=== PATIENT | female | born 1940 | race Caucasian/White ===

== ENCOUNTER → 2020-02-01 08:33 | Outpatient (BNVA) | payer MEDICARE, SELFPAY | PROVIDERS: PCP Family Medicine; Referring Provider Family Medicine; Visit Provider Student in an Organized Health Care Education/Training Program | DX: M16.11 Unilateral primary osteoarthritis, right hip (principal); M16.12 Unilateral primary osteoarthritis, left hip; M70.61 Trochanteric bursitis, right hip | CPT/HCPCS: 99203 ==

== ENCOUNTER 2020-03-26 14:51 | Outpatient (CLI) | payer MEDICARE, SELFPAY ==
--- NOTE | 2020-03-26 13:00 | DI.RAD_ITS ---
EXAM: XR PELVIS AP CLINICAL HISTORY: pre op. TECHNIQUE: 2D digital imaging was performed. COMPARISON: No exams were available for comparison FINDINGS: There are marked degenerative changes of the right hip with joint space narrowing, subchondral sclero sis and periarticular spurring. Moderate degenerative changes are seen in the left hip. The bones a re normally mineralized and intact. The soft tissues are unremarkable. IMPRESSION: Osteoarthritis of the hips bilaterally. DATA REPOSITORY: RADIATION DOSE DELIVERED:
== END 2020-03-26 15:11 ==
PROVIDERS: PCP Family Medicine; Visit Provider Physician Assistant
DX: M16.0 Bilateral primary osteoarthritis of hip (principal)
CPT/HCPCS: 72170

== ENCOUNTER 2020-03-28 01:54 | Outpatient (CLI) | payer MEDICARE, SELFPAY ==
[2020-03-30 11:26] LABS: SARS-CoV-2 RNA Not Detected (NotDetected); SARS-CoV-2 RNA Source Nasal/Nares
== END 2020-03-28 02:14 ==
PROVIDERS: PCP Family Medicine; Visit Provider Student in an Organized Health Care Education/Training Program
DX: Z11.59 Encounter for screening for other viral diseases (principal); Z01.818 Encounter for other preprocedural examination
CPT/HCPCS: U0003

== ENCOUNTER 2020-03-28 02:10 | Outpatient (CLI) | payer MEDICARE, SELFPAY ==
[2020-03-28 10:36] LABS: HCT 41.8 % (36.0-46.0); HGB 13.6 g/dL (11.2-15.7); MCH 28.8 pg (27.0-33.0); MCHC 32.5 % (32.0-36.0); MCV 88.6 fL (80-95); MPV 9.6 fL (8.0-11.0); Platelet Count 265 10^3/uL (130-400); RBC 4.72 10^6/uL (3.93-5.22); RDW 13.2 % (11.7-14.6); RDW-SD 43.4 fL; WBC 8.03 10^3/uL (4.4-10.8)
[2020-03-28 12:09] LABS: Anion Gap 7.1 mmol/L (3-11); BUN 15 mg/dL (7-18); CO2 26.9 mmol/L (21.0-32.0); CREATININE 0.84 mg/dL (0.55-1.02); Calcium 9.2 mg/dL (8.5-10.1); Chloride 103 mmol/L (98-107); Glucose 94 mg/dL (74-106); Potassium 4.5 mmol/L (3.5-5.1); Sodium 137 mmol/L (136-145)
== END 2020-03-28 02:30 ==
PROVIDERS: PCP Family Medicine; Visit Provider Student in an Organized Health Care Education/Training Program
DX: Z01.818 Encounter for other preprocedural examination (principal); M16.11 Unilateral primary osteoarthritis, right hip
CPT/HCPCS: 36415; 80048; 85027; 86850; 86900; 86901; U0003

== ENCOUNTER → 2020-04-01 08:21 | Outpatient (BNVA) | payer MEDICARE, SELFPAY | PROVIDERS: PCP Family Medicine; Referring Provider Family Medicine; Visit Provider Student in an Organized Health Care Education/Training Program | DX: R69 Illness, unspecified (principal) ==

== ENCOUNTER 2020-04-01 09:21 | Observation (INO) | payer MEDICARE, SELFPAY ==
[2020-04-01] VITALS (12 sets, daily range): BP systolic 131–176; BP diastolic 63–91; PULSE 57–69; RESP 12–20; TEMP 35.7–37.7; O2SAT 94–99
[2020-04-01] MEDS: Lactated Ringers 1,000 ML 80 ML IV (10:31)
[2020-04-01] MEDS: Ondansetron 4 MG/2 ML VIAL IVP (10:36)
[2020-04-01] MEDS: Droperidol 5 MG/2 ML VIAL 0.625 MG IVP (10:43)
[2020-04-01] MEDS: Celecoxib 200 MG CAP 400 MG PO (10:52)
[2020-04-01] MEDS: Acetaminophen 500 MG TAB 1000 MG PO ×3 (10:52→20:05)
[2020-04-01] MEDS: ceFAZolin 2 GM/50 ML BAG IVPB (15:16)
[2020-04-01] MEDS: Bupivacaine 0.25% Pres-Free 30 ML VIAL ×2 (16:02→16:04)
[2020-04-01] MEDS: Ketorolac 30 MG/ML VIAL (16:03)
--- NOTE | 2020-04-01 16:51 | DI.RAD_ITS ---
EXAM: XR HIP RT IN OR CLINICAL HISTORY: Degenerative joint disease of right hip TECHNIQUE: 2D and realtime digital imaging was performed. CONTRAST MATERIAL: Refer to procedure report. COMPARISON: No exams were available for comparison FINDINGS: Fluoroscopy was provided for Dr. Moore during the performance of a right total hip replacement. Please refer to the procedure report for complete details. Fluoro time: 34.3 seconds IMPRESSION: RADIATION DOSE DELIVERED:
--- NOTE | 2020-04-01 16:55 | W.PM.OP ---
Date of service: 04/01/20 Time of Service: 16:56 Operative Note Operative Note DATE OF PROCEDURE: 04/01/20 PRE-OP DIAGNOSIS: Right Hip Osteoarthritis POST-OP DIAGNOSIS: same PROCEDURE: Right Anterior Total Hip Arthroplasty SURGEON: Petros Moore INTELLIGENCE OFFICER BASIC: Bravo Edward ANESTHESIA: spinal ESTIMATED BLOOD LOSS: 300 PATHOLOGY: none sent TOURNIQUET TIME: 0 COMPLICATIONS: None Patient was transported to: PACU Patient's condition: stable Implants: 1. Depuy [place] Acetabular Component, 48mm 2. Depuy Acetabular Liner, [id number] 3. Depuy Corail Coxa Vara Femoral Stem, Size 11 4. Depuy Altrx Ceramic Femoral Head, Size 32+5mm Indications: I have seen Brynn in clinic for symptoms of hip arthritis, confirmed with radiographic findings. Brynn has exhausted nonoperative methods and was having significant limitations in daily function and desired better function and less pain. I discussed the technical details of a hip replacement. I explained the risks of the procedure to include, but not limited to, bleeding, infection, pain, stiffness, fracture, damage to nerves and vessels, damage to muscles and tendons, loosening, instability, leg length inequality, need for repeat procedure, blood clot and cardiopulmonary demise. Despite these risks, Brynn elected to proceed. Findings: There was significant signs of arthritis throughout the hip. Multiple lateral neck osteophytes were present. Procedure Description: Brynn was greeted in the preoperative holding area where the correct side was identified and marked. The consent was reviewed with the patient and signed. The history and physical was updated. All questions were answered. Brynn was taken back to the operating room. A spinal anesthestic was then administered. The feet were wrapped with cast padding and Coban and then placed into the boot liners and then into the boots. Care was taken to protect the skin and make sure the heels were fully down and the boots were stable. The patient was then positioned onto the HANA table. Both legs were held in a neutral position. SCDs were applied. The patient was then slid down onto a peroneal post. A preoperative AP pelvis was obtained to serve as a reference for determining leg lengths. Prophylactic antibiotics in the form of Cefazolin were administered. 1g of Tranxemic Acid was given intravenously within 30 minutes of incision. The right leg was then prepped with Chloraprep and draped in a standard fashion. A second prep with Chloraprep was performed prior to placement of a shower-curtain type drape with Iodine impregnated skin protection. A timeout to confirm correct identity, side and site, procedure, allergies, anesthesia, and medical concerns was performed. An obliquely oriented incision was made starting lateral to the ASIS and running distal over the Tensor Fascia Anayeli (TFL) muscle belly toward the fibular head, approximately 10cm. The skin and soft tissue was dissected sharply, through Tevin?s fascia, and to the fascia of the TFL. With the fascia and superior border of the IT band identified, the fascia was incised with a new knife just above any perforators from the IT band. The TFL muscle belly was bluntly dissected away from the fascia and moved laterally. The fat between TFL and rectus was identified to ensure the dissection was not within the TFL. Blunt dissection created space between abductors and the capsule and retractor was placed over the lateral femoral neck. The fibers of the rectus femoris tendon were identified and these were freed from the anterior capsule. A second cobra retractor was placed around the medial femoral neck. The TFL was further retracted laterally to show the deep fascia. Careful dissection through this layer identified three main crossing vessels of the lateral femoral circumflex. These were cauterized in multiple locations and then cut without any noticeable bleeding. The TFL was further released bluntly from the deep fascia to expose anterior hip capsule and fat The Keith orthopaedic retractor was then placed beneath the TFL and against sartorius and medial soft tissues to protect and retract the soft tissues. A T-capsulotomy was then performed starting at the superior lateral acetabulum and moving distally to the intertrochanteric ridge. These capsular flaps were tagged with a No. 1 Ethibond and elevated from within. The capsular flaps were released to the shoulder of the lateral neck and to the lesser trochanter to give excellent visualization of the proximal femur. A neck osteotomy was performed using an oscillating saw based on preoperative templates. This cut started in the shoulder and of the lateral neck and exited medially. The saw was at all times directed medially to avoid injury to the greater trochanter. 6cm of traction was applied to the leg and the osteotomy opened. The femoral head was removed with a corkscrew, making sure to protect the TFL on its exit. Traction was released after head removal. This was measured on the back table to determing the starting reamer size. Portions of the rectus obscuring visualization were minimally elevated off the superior acetabulum. An anterior retractor was placed over the anterior wall between capsule and labrum and attached to the Gripper retraction system. A posterior retractor was placed similarly. This provided excellent visualization. The contents of the cotyloid fossa were removed with electrocautery and the labrum was removed with a knife. There was a notable floor osteophyte. There was significant chondromalacia of the superior acetabulum. Acetabular reaming began with a 44mm reamer. This first reaming was directed anterior to posterior and medial to get down to the true floor. This was inspected and reamed until the true floor was reached. The anterior retractor was then released and entry and exit was provided by traction on the capsular flaps. I then reamed sequentially up to a 47mm reamer where good fit was obtained. The larger reamers were oriented based on anatomical reference of the anterior and lateral barrientos to ensure proper abduction and anteversion. Positioning and size was confirmed with the fluoroscopy. A 48mm Depuy [place] acetabular component was selected. The acetabulum was reamed around the periphery with the selected acetabular size to prevent a rim fit. The deep tissues were irrigated. The acetabular component was then impacted in a position of about 40-45 degrees of abduction and 15-20 degrees of anteversion, using the patient?s anatomy as the ultimate landmark. Fluoroscopy was used to confirm this. There was excellent health insurance assessor of the acetabular component and the inserting handle was removed. The acetabular liner, Depuy [id number] polyethylene liner, was inserted and lined up with the tines of the acetabular component. There was no soft tissue interposition. The liner was then impacted into position and confirmed to be well-seated. A portion of the sandhya-articular cocktail was then injected around the acetabulum into the capsule and periosteum. This cocktail consisted of 50cc of 0.25% Bupivicaine and 20cc of Exparel, expanded to a total of 120cc. Traction was released from the femur. The leg was rotated to 120 degrees. Any remaining medial capsule was released until the lesser trochanter was easily palpable. A Ellis retractor was placed medially. The lateral capsule was further released into the shoulder to allow access to the greater trochanter. A Ellis retractor was placed over the greater trochanter which allowed the trochanter to flip in front of the capsule for excellent exposure. The leg was brought down into maximal extension and 20 degrees of adduction while ensuring there was no impingement on the acetabulum. Any remnant capsule within the trochanter was released. Piriformis and obturator externis were identified and protected. There was excellent access to the proximal femur. The lateral neck remnant was removed with a rongeur. A blunt canal probe was used to identify the canal and trajectory for later broaching. A box osteotome initiated the broach course. A small curved rasp and a curved curette were used to work laterally. Broaching then began with a size 8 Corail broach. This was inserted manually around the trochanter and into the canal before mallet blows. The broach was seated to a few millimeters below the cut level based on the neck cut and the preoperative template. Sequential broaching was continued with the Zume Lifese pneumatic broaching device until a tight fit was obtained with good rotational control of the femur. A trial coxa vara neck was inserted along with a +1 trial head. The leg was brought out of extension and adduction and then reduced with traction and internal rotation. The leg was stable anteriorly in a position of 30 degrees of extension and 90 degrees of external rotation. Fluoroscopy was used to ensure there was no fracture and the stem was seated well. Leg lengths were checked with an AP pelvis and pelvic reference points. [employer] navigation system was used to confirm appropriate positioning and leg length and offset. There was still some under offset, so I went up to the +5 head. Once content with the desired offset and leg lengths, the leg was brought back into extension, external rotation and adduction. The periosteum and surrounding tissue was injected with remaining portion of the sandhya-articular cocktail. The proximal femur was irrigated as well as the deep tissues. The Depuy Corail Coxa Vara stem, size 11, was then manually inserted into the proximal femur making sure to control rotation. It was then malleted into position with light blows, giving breaks to allow bone expansion and decrease risk of fracture. The selected Depuy Altrx Ceramic Head, size 32+5mm, was then placed onto the clean and dry trunnion and secured with impaction onto the tapered fit. The leg was brought back out of extension and adduction and reduced with traction and internal rotation. Stability was confirmed with no shuck at 90 degrees of external rotation and 30 degrees of extension. No impingement through range of motion arc. Final x-ray images were obtained with fluoroscopy to confirm adequate positioning and no intraoperative fracture. The deep tissues were thoroughly irrigated with Irrisept chlorhexadine solution. The second dose of TXA 1g was administered intravenously.The capsule was then reapproximated with the previously placed Ethibond sutures. The TFL fascia was finally closed with a No. 2 Stratafix, barbed suture. Deep tissues were then reapproximated with 0 Vicryl and a running 2-0 Vicryl. The skin was closed with a running 4-0 Monocryl in a subcuticular fashion. This was reinforced with skin glue. A Mepilex silver dressing was applied. At the end of the case, all counts were correct. Brynn was transferred to the hospital bed without difficulty and suffering no apparent complication. Brynn has a good prognosis. Physical therapy will start today and without restrictions, weight-bearing as tolerated. Aspirin 81mg BID will be used for DVT prophylaxis.
[2020-04-01] MEDS: Celecoxib 200 MG CAP PO (19:53)
[2020-04-01] MEDS: Aspirin E.C. 81 MG TABEC PO (19:53)
[2020-04-01] MEDS: ceFAZolin 1 GM/50 ML BAG IVPB (19:53)
[2020-04-02] MEDS: ceFAZolin 1 GM/50 ML BAG IVPB (03:53)
[2020-04-02 04:05] VITALS: BP 145/76; PULSE 75; RESP 17; TEMP 37.1; O2SAT 95
[2020-04-02 07:22] VITALS: BP 163/78; PULSE 78; RESP 17; TEMP 36.7; O2SAT 93
[2020-04-02] MEDS: Celecoxib 200 MG CAP PO (07:30)
[2020-04-02] MEDS: Acetaminophen 500 MG TAB 1000 MG PO (07:30)
[2020-04-02] MEDS: Aspirin E.C. 81 MG TABEC PO (07:30)
[2020-04-02] MEDS: Docusate Sodium 100 MG CAP PO (07:30)
[2020-04-02] MEDS: Pantoprazole 40 MG TABCR PO (07:31)
[2020-04-02] MEDS: Folic Acid 1 MG TAB PO (07:35)
--- NOTE | 2020-04-02 07:41 | W.PM.DS.N ---
Documented by User: Francie Arreola 04/01/20 10:11 DS: Diagnosis Discharge Diagnosis (1) Degenerative joint disease of right hip: Status: Chronic Discharge Plan Disposition Patient Disposition: HOME Condition: Good Discharge Details Reason For Visit: R HIP DJD Admit Date/Time: 04/01/20 09:21 Admit Provider: Petros Moore Attending Provider: Petros Moore Primary Care Provider: Rad Kwok Hospital Course Hospital Course: Patient was admitted to the medical/surgical floor following the procedure. The surgery was tolerated well without any notable medical, surgical, or anesthetic complications. Mobilization began post-operatively. They were voiding spontaneously. Vitals were stable. Physical therapy worked with the patient and was cleared for discharge home. No acute medical issues but she did have intermittent nauea and visual changes which she has been having for weeks prior. These all resolved on their own. Pain was controlled on oral regimen. Home Meds and New Rx's Prescriptions: New celecoxib [Celebrex] 200 mg capsule 200 mg PO BID Qty: 60 RF: 0 aspirin 81 mg tablet,delayed release (DR/EC) 81 mg PO BID 30 Days Qty: 60 RF: 0 acetaminophen 500 mg tablet 500 mg PO Q6H PRN (Reason: pain) Qty: 60 RF: 2 docusate sodium [Colace] 100 mg capsule 100 mg PO BID Qty: 30 RF: 0 oxycodone 5 mg tablet 2.5 - 5 mg PO Q6H PRN (Reason: severe post-operative pain) Qty: 12 RF: 0 pantoprazole 40 mg tablet,delayed release (DR/EC) 40 mg PO DAILY Qty: 30 RF: 0 Continued garlic 1,000 mg capsule 1,000 mg PO DAILY RF: 0 verapamil 180 mg capsule,ext rel. pellets 24 hr 180 mg PO HS RF: 0 cholecalciferol (vitamin D3) 25 mcg (1,000 unit) capsule 25 mcg PO DAILY RF: 0 folic acid 1 mg Tablet 1 mg PO DAILY RF: 0 Discontinued aspirin [Adult Aspirin Regimen] 81 mg tablet,delayed release (DR/EC) 81 mg PO DAILY RF: 0 Discharge Instructions Additional Instructions: Total Hip Discharge Instructions Activity: The most important activity is to walk. You should try to take short walks a few times a day. You have no restrictions on movement or positioning, but do not try to force what you do. You will find some stiffness and weakness with hip flexion (lifting your knee). Do not try to strengthen this too early, continue to practice walking and stairs and this will come. - Outpatient physical therapy can be helpful to help return you to a normal gait and improve your flexibility and strength. This can start around 2 weeks. For some patients, it?s not necessary. Usually this is determined at the time of discharge or at the first post-operative visit. - You should wear the JOSEPH hose on both legs for 2 weeks. Dressing: Keep the surgical dressing in place for at least one week. After the first week it may be removed and replace with light gauze and tape or nothing. It may get wet after 3 days but avoid soaking the dressing. If it gets wet, just lightly pat dry. It is important to always keep some gauze between skin folds, especially when you are sitting. Spend some time with the wound exposed when you are lying flat as the incision does wrinkle onto itself. Medications: - You should take Tylenol and an anti-inflammatory Celebrex as your primary pain control medications. If Celebrex is too expensive or not covered, you may take Aleve 1-2 pills twice a day. - You have been prescribed a stronger pain medication Oxycodone for breakthrough pain, take as needed as prescribed. - You have also been prescribed a stomach acid reduction agent Pantoprozole to help reduce stomach acid and reflux. - You will be taking Aspirin 81mg twice a day for DVT prevention unless instructed otherwise. - If you have constipation you should take Colace (which has been prescribed) or Miralax (which you may purchase [id number]). It takes most people 3-4 days to have a bowel movement. Follow-up: 2 weeks If you have any acute concerns or questions, please do not hesitate to contact the office at [phone]. You may contact Dr. Moore with any questions after hours through the hospital at [phone] or on his cell phone at [phone]. Referrals: Petros Moore MD [ [facility] STAFF PHYSICIAN] - Activity:: Activity as Tolerated Equipment/Supplies:: Walker Diet:: As Tolerated Discharge Orders Discharge Orders: Discharge Order (Routine); Ordered 04/02/20 Ordered By: Petros Moore DS: Data Vitals/I&O Vitals and I&O: Vital Signs Temperature 36.5 C 04/01/20 09:56 Pulse 69 04/01/20 09:56 Pulse Rhythm Regular 04/01/20 09:30 Respiratory Rate 18 04/01/20 09:56 Respiratory Effort 04/01/20 09:30 Blood Pressure 163/80 H 04/01/20 09:56 Pulse Oximetry 97 04/01/20 09:56 Oxygen Delivery Method Room Air 04/01/20 09:56 Oxygen Flow Rate 0 04/01/20 09:56 Intake & Output 03/31/20 03/31/20 04/01/20 11:59 23:59 11:59 Weight 84.822 kg 83.9 kg [facility] Medical History Abnormal auditory perception (12/08/15) 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 denies this dx Trochanteric bursitis, right hip Surgical History History of cardiac catheterization (~05/1998) Lesion of lip lower lip precancerous lesion removal Status post carpal tunnel release Right Social History Smoking/Tobacco Use Status: Former Tobacco Use Smoking risk assessment performed?: Yes Drug use: Never Documented by User: Petros Moore MD 04/02/20 07:41 Date of service: 04/02/20 Time of Service: 07:39 Discharge Plan Disposition Patient Disposition: HOME Condition: Good Discharge Details Reason For Visit: R HIP DJD Admit Date/Time: 04/01/20 09:21 Admit Provider: Petros Moore Attending Provider: Petros Moore Primary Care Provider: Rad Kwok Hospital Course Hospital Course: Patient was admitted to the medical/surgical floor following the procedure. The surgery was tolerated well without any notable medical, surgical, or anesthetic complications. Mobilization began post-operatively. They were voiding spontaneously. Vitals were stable. Physical therapy worked with the patient and was cleared for discharge home. No acute medical issues but she did have intermittent nauea and visual changes which she has been having for weeks prior. These all resolved on their own. Pain was controlled on oral regimen. Home Meds and New Rx's Prescriptions: New celecoxib [Celebrex] 200 mg capsule 200 mg PO BID Qty: 60 RF: 0 aspirin 81 mg tablet,delayed release (DR/EC) 81 mg PO BID 30 Days Qty: 60 RF: 0 acetaminophen 500 mg tablet 500 mg PO Q6H PRN (Reason: pain) Qty: 60 RF: 2 docusate sodium [Colace] 100 mg capsule 100 mg PO BID Qty: 30 RF: 0 oxycodone 5 mg tablet 2.5 - 5 mg PO Q6H PRN (Reason: severe post-operative pain) Qty: 12 RF: 0 pantoprazole 40 mg tablet,delayed release (DR/EC) 40 mg PO DAILY Qty: 30 RF: 0 Continued garlic 1,000 mg capsule 1,000 mg PO DAILY RF: 0 verapamil 180 mg capsule,ext rel. pellets 24 hr 180 mg PO HS RF: 0 cholecalciferol (vitamin D3) 25 mcg (1,000 unit) capsule 25 mcg PO DAILY RF: 0 folic acid 1 mg Tablet 1 mg PO DAILY RF: 0 Discontinued aspirin [Adult Aspirin Regimen] 81 mg tablet,delayed release (DR/EC) 81 mg PO DAILY RF: 0 Discharge Instructions Additional Instructions: Total Hip Discharge Instructions Activity: The most important activity is to walk. You should try to take short walks a few times a day. You have no restrictions on movement or positioning, but do not try to force what you do. You will find some stiffness and weakness with hip flexion (lifting your knee). Do not try to strengthen this too early, continue to practice walking and stairs and this will come. - Outpatient physical therapy can be helpful to help return you to a normal gait and improve your flexibility and strength. This can start around 2 weeks. For some patients, it?s not necessary. Usually this is determined at the time of discharge or at the first post-operative visit. - You should wear the JOSEPH hose on both legs for 2 weeks. Dressing: Keep the surgical dressing in place for at least one week. After the first week it may be removed and replace with light gauze and tape or nothing. It may get wet after 3 days but avoid soaking the dressing. If it gets wet, just lightly pat dry. It is important to always keep some gauze between skin folds, especially when you are sitting. Spend some time with the wound exposed when you are lying flat as the incision does wrinkle onto itself. Medications: - You should take Tylenol and an anti-inflammatory Celebrex as your primary pain control medications. If Celebrex is too expensive or not covered, you may take Aleve 1-2 pills twice a day. - You have been prescribed a stronger pain medication Oxycodone for breakthrough pain, take as needed as prescribed. - You have also been prescribed a stomach acid reduction agent Pantoprozole to help reduce stomach acid and reflux. - You will be taking Aspirin 81mg twice a day for DVT prevention unless instructed otherwise. - If you have constipation you should take Colace (which has been prescribed) or Miralax (which you may purchase [id number]). It takes most people 3-4 days to have a bowel movement. Follow-up: 2 weeks If you have any acute concerns or questions, please do not hesitate to contact the office at [phone]. You may contact Dr. Moore with any questions after hours through the hospital at [phone] or on his cell phone at [phone]. Referrals: Petros Moore MD [ [facility] STAFF PHYSICIAN] - Activity:: Activity as Tolerated Equipment/Supplies:: Walker Diet:: As Tolerated Discharge Orders Discharge Orders: Discharge Order (Routine); Ordered 04/02/20 Ordered By: Petros Moore DS: Summary Status at Discharge Functional status at discharge: uses cane/walker Overall status at discharge: patient is progressing back to baseline Mental Status: mental status grossly normal Speech and Movement: speech and movement normal Mood: congruent mood Affect: normal affect Exam Psych Mental Status: mental status grossly normal Speech and Movement: speech and movement normal Mood: congruent mood Affect: normal affect [facility] Medical History Abnormal auditory perception (12/08/15) 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 denies this dx Trochanteric bursitis, right hip Surgical History History of cardiac catheterization (~05/1998) Lesion of lip lower lip precancerous lesion removal Status post carpal tunnel release Right Social History Smoking/Tobacco Use Status: Former Tobacco Use Smoking risk assessment performed?: Yes Drug use: Never
--- NOTE | 2020-04-02 08:32 | IN_ITS ---
Date of service: 04/02/20 Time of Service: 08:32 PT Notes Visit Reasons: R HIP DJD Physical Therapy Inpatient Initial Evaluation Date: 04/02/2020 Referring Doctor: Francie Arreola NP PT Orders: PT CONSULT: Status post ortho surgery Precautions: Fall. Standard. WBAT on the right LE. Patient Profile/Admitting Diagnosis: Brynn is an 80-year-old female with primary unilateral osteoarthritis of the right hip and is status post right total hip arthroplasty on postoperative day 1. 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 COPD (chronic obstructive pulmonary disease) Coronary artery disease Degenerative joint disease of left hip Degenerative joint disease of right hip Depression GERD (gastroesophageal reflux disease) History of cardiac conduction disorder History of cerebrovascular disease Hyperlipidemia Hypertension Left bundle branch block Nicotine dependence Referred otalgia of both ears (12/08/15) Sensorineural hearing loss, bilateral (03/28/17) Sensory hearing loss, bilateral (12/08/15) Shadow of lung pulmonary nodules Spinal stenosis TMJ (temporomandibular joint disorder) (12/08/15) Trochanteric bursitis, right hip Surgical History (Updated 03/25/20 @ 16:27 by Francie Arreola) History of cardiac catheterization (~05/1998) Lesion of lip lower lip precancerous lesion removal Status post carpal tunnel release Right Social History/Home Situation: Lives alone in a private home with a ramp to enter, no stairs inside the house. Independent with all aspects of ADLs prior to surgery. Has good family support. Equipment Owned/DME: Front wheeled walker, single-point cane, raised toilet seat, ramp Subjective: Complained about being mildly lightheaded upon standing, subsided after ambulation activity. Objective: General Observation: IV access in right UE. Mepilex Ag over surgical incision. Mental Status: Alert and oriented x4 Pain: 1?2/10 in right hip with weightbearing ROM: Right Upper Extremity: Shoulder Flexion WFL. Shoulder abduction WFL. Elbow flexion WFL. Wrist flexion WFL. Opening and closing of hand WFL. Left Upper Extremity: Shoulder Flexion WFL. Shoulder abduction WFL. Elbow flexion WFL. Wrist flexion WFL. Opening and closing of hand WFL. Right Lower Extremity: Hip flexion WFL. Hip abduction WFL. Knee flexion WFL. Ankle dorsiflexion WFL. Ankle plantarflexion WFL. Left Lower Extremity: Hip flexion WFL. Hip abduction WFL. Knee flexion WFL. Ankle dorsiflexion WFL. Ankle plantarflexion WFL. Strength: Right Upper Extremity: Shoulder flexors 5/5. Shoulder abductors 5/5. Elbow flexors 5/5. Elbow extensors 5/5. Car Mechanic Helper strong. Left Upper Extremity: Shoulder flexors 5/5. Shoulder abductors 5/5. Elbow flexors 5/5. Elbow extensors 5/5. Car Mechanic Helper strong. Right Lower Extremity: Hip flexors 4/5. Hip abductors 4/5. Knee flexors 5/5. Knee extensors 4/5. Ankle dorsiflexors 5/5. Ankle plantarflexors 5/5. Left Lower Extremity:Hip flexors 5/5. Hip abductors 5/5. Knee flexors 5/5. Knee extensors 5/5. Ankle dorsiflexors 5/5. Ankle plantarflexors 5/5. Sensation: Intact as to pain and pressure on bilateral lower extremities. Bed Mobility/Transfers: Rolling independent Supine to sit independent Sit to supine independent Sit to stand supervision Stand to sit supervision Bed to chair supervision Chair to bed supervision Gait: 250 feet using front wheeled walker with standby assist. Step through gait pattern. Report of mild dizziness subsided after ambulation activity. Balance: Static Sitting: Normal Dynamic Sitting: Normal Static Standing: Fair Dynamic Standing: Fair Special Tests: Mobility Limitations Standardized Measure [facility] 6 clicks Basic Mobility Inpatient Short Form: Raw Score: 23 CMS Score: 11% deficit Informed Consent/Education: Patient instructed in purpose of PT consult. Assessment: Brynn demonstrates functional mobility decline requiring the use of front wheeled walker for all mobility ADL performance to maximize safety and reduce fall risk. Patient presents with clinical signs and symptoms consistent with current/admitting diagnoses that have resulted to mobility limitations, gait instability, generalized weakness, and impairment of motor control as demonstrated by the following impairment level findings: 1. Impaired sitting/standing balance 2. Impaired activity tolerance Impairments are contributing to the following functional limitations: 1. Inability to safely ambulate without assistive device 2. Increase completion time for mobility ADL performance 3. Increased fall risk Patient is assessed as a 19759 moderate complexity based on the following: History: 80-year-old female height with impairment level findings, functional limitations, and past medical history as indicated above Examination: Demonstrable impairment in strength, balance, and mobility level with underlying impairments and functional limitations as documented above Presentation:Evolving Decision Makin moderate complexity Goals: N/A. PT consult and 1 treatment session only for functional mobility education and training with use of front wheeled walker. Plan of Care/Treatment Plan: N/A. PT consult and 1 treatment session only for functional mobility education and training with use of front wheeled walker. DISCHARGE RECOMMENDATIONS: Home when medically cleared by orthopedic surgeon. Outpatient physical therapy services as deemed necessary by orthopedic surgeon during 2-week orthopedic follow-up. TREATMENT CODE/TIME: 60632 x 23 minutes beginning at 8:32 AM. Thank you for the opportunity to participate in the care of this patient. Libertad De Jesus PT, DPT, CLT [facility] [place], [place]
--- NOTE | 2020-04-02 08:35 | INITIAL_ITS ---
- If Service Date Differs Date of service: 04/02/20 Time of Service: 08:36 Care Management Initial Assess REASON FOR HOSPITALIZATION:: DJD right hip PAST MEDICAL HISTORY/PAST SURGICAL HISTORY:: Medical History (Updated 03/26/20 @ 13:52 by Julieth Bhardwaj RN). Abnormal auditory perception (12/08/15). Adrenal gland disorder. Chronic ischemic heart disease. COPD (chronic obstructive pulmonary disease). Coronary artery disease. Degenerative joint disease of left hip. Degenerative joint disease of right hip. Depression. GERD (gastroesophageal reflux disease). History of cardiac conduction disorder. History of cerebrovascular disease. Hyperlipidemia. Hypertension. Left bundle branch block. Nicotine dependence. Referred otalgia of both ears (12/08/15). Sensorineural hearing loss, bilateral (03/28/17). Sensory hearing loss, bilateral (12/08/15). Shadow of lung. pulmonary nodules. Spinal stenosis. TMJ (temporomandibular joint disorder) (12/08/15). Trochanteric bursitis, right hip. Surgical History (Updated 03/25/20 @ 16:27 by Francie Arreola). History of cardiac catheterization (~05/1998). Lesion of lip. lower lip precancerous lesion removal. Status post carpal tunnel release. Right PREVIOUS FUNCTIONAL STATUS/SOCIAL/FAMILY SUPPORTS:: Brynn lives alone in a mobile home in [place], [place]. She has 5 living children and 14 grandchildren, all of whom are supportive. Gracia's oldest son of small cell cancer as did her . 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 She describes herself as very independent. CURRENT FUNCTIONAL STATUS:: Brynn was sitting up in a chair when CM met with her. She was pleasant and engaged readily with CM. She informed CM that she has been discharged and that her daughter in law will pick her up mid-afternoon. She has a walker and raised toilet seat and does not feel she will need any additional resources. ADVANCE DIRECTIVES:: none on file Has patient been provided with info about the portal/API?: No Did the patient sign up for the portal?: No CODE STATUS:: Full Code INSURANCE COVERAGE / FINANCIAL ISSUES:: Medicare. Financial Assist 100 CURRENT HOME/COMMUNITY SERVICES/EQUIPMENT:: none PRIMARY CARE PHYSICIAN:: Rad Kwok POTENTIAL DISCHARGE NEEDS:: Follow up with PCP and discharge plan of care PATIENT/FAMILY EDUCATION NEEDS:: Discharge plan, limitations, follow up plan and Ask Me Three TRANSPORTATION:: via private vehicle PLAN:: Brynn will be discharged home with no new services. She will follow up with her surgeon and discharge plan of care and transport with family.
== END 2020-04-02 09:37 | disposition home or self-care (01) | DRG 470 ==
LOC: PDS 10:02 → MS 18:20 → PDS 04-29 15:03 → MS 04-29 15:03
PROVIDERS: Admitting Provider Student in an Organized Health Care Education/Training Program; PCP Family Medicine; Visit Provider Student in an Organized Health Care Education/Training Program
PROC: 0SR904A Replacement of Right Hip Joint with Ceramic on Polyethylene Synthetic Substitute, Uncemented, Open Approach (ICD-10-PCS; CPT 27130; principal; 2020-04-01 15:30)
DX: M16.11 Unilateral primary osteoarthritis, right hip (principal); M25.551 Pain in right hip; Z96.641 Presence of right artificial hip joint; R10.31 Right lower quadrant pain; J44.9 Chronic obstructive pulmonary disease, unspecified; I25.10 Atherosclerotic heart disease of native coronary artery without angina pectoris; K21.9 Gastro-esophageal reflux disease without esophagitis; I10 Essential (primary) hypertension; E78.5 Hyperlipidemia, unspecified; F17.210 Nicotine dependence, cigarettes, uncomplicated
CPT/HCPCS: 20985; 27130; C1776; 97162; NC; 73501; J0690; J1790; J1885; J2405; J2704

== ENCOUNTER 2020-04-14 16:07 | Outpatient (CLI) | payer MEDICARE, SELFPAY ==
--- NOTE | 2020-04-14 15:00 | DI.RAD_ITS ---
EXAM: XR HIP RT COMPLETE AP PELVIS INDICATION: 1st post op R LISHA. COMPARISON: CR XR HIP RT MIN 2V AND PELVIS from 07/12/2019 XR HIP RT IN OR from 04/01/2020 TECHNIQUE: 2D digital imaging was performed. FINDINGS: There has been no change in alignment of the right hip prosthesis. No abnormal bony lucencies are s een. Soft tissues are unremarkable. Moderate to severe degenerative changes are seen in the left hi p. DATA REPOSITORY: RADIATION DOSE DELIVERED:
== END 2020-04-14 16:27 ==
PROVIDERS: PCP Family Medicine; Referring Provider Family Medicine; Visit Provider Student in an Organized Health Care Education/Training Program
DX: Z96.641 Presence of right artificial hip joint (principal); M16.12 Unilateral primary osteoarthritis, left hip; Z47.1 Aftercare following joint replacement surgery; J44.9 Chronic obstructive pulmonary disease, unspecified
CPT/HCPCS: 73502

== ENCOUNTER → 2020-04-28 14:33 | Outpatient (BNVA) | payer MEDICARE, SELFPAY | PROVIDERS: PCP Family Medicine; Referring Provider Family Medicine; Visit Provider Student in an Organized Health Care Education/Training Program | DX: Z96.641 Presence of right artificial hip joint (principal); Z47.1 Aftercare following joint replacement surgery ==

== ENCOUNTER → 2020-05-26 13:51 | Outpatient (BNVA) | payer MEDICARE, SELFPAY | PROVIDERS: PCP Family Medicine; Referring Provider Family Medicine; Visit Provider Student in an Organized Health Care Education/Training Program | DX: Z47.1 Aftercare following joint replacement surgery (principal); Z96.641 Presence of right artificial hip joint ==

== ENCOUNTER 2020-07-07 15:53 | Outpatient (CLI) | payer MEDICARE, SELFPAY | END 2020-07-07 15:54 | disposition home or self-care (01) | LOC: DIORS 15:54 | PROVIDERS: PCP Family Medicine; Referring Provider Family Medicine; Visit Provider Student in an Organized Health Care Education/Training Program | DX: Z47.1 Aftercare following joint replacement surgery (principal); Z96.641 Presence of right artificial hip joint; M70.61 Trochanteric bursitis, right hip | CPT/HCPCS: 99212; 99213 ==

== ENCOUNTER → 2020-08-04 14:29 | Outpatient (BNVA) | payer MEDICARE, SELFPAY | PROVIDERS: PCP Family Medicine; Visit Provider Student in an Organized Health Care Education/Training Program | DX: Z47.1 Aftercare following joint replacement surgery (principal); Z96.641 Presence of right artificial hip joint; M70.61 Trochanteric bursitis, right hip | CPT/HCPCS: 99213 ==

== ENCOUNTER → 2020-09-01 10:45 | Outpatient (BNVA) | payer MEDICARE, SELFPAY | PROVIDERS: PCP Family Medicine; Referring Provider Family Medicine; Visit Provider Student in an Organized Health Care Education/Training Program | DX: Z47.1 Aftercare following joint replacement surgery (principal); Z96.641 Presence of right artificial hip joint; M70.61 Trochanteric bursitis, right hip ==

== ENCOUNTER → 2020-09-11 10:04 | Outpatient (BNVA) | payer MEDICARE, SELFPAY | PROVIDERS: PCP Family Medicine; Referring Provider Family Medicine; Visit Provider Psychiatry & Neurology Neurology | DX: R42 Dizziness and giddiness (principal); H91.91 Unspecified hearing loss, right ear; G43.809 Other migraine, not intractable, without status migrainosus | CPT/HCPCS: 99215 ==

== ENCOUNTER → 2020-11-13 07:18 | Outpatient (BNVA) | payer MEDICARE, SELFPAY | PROVIDERS: PCP Family Medicine; Referring Provider Family Medicine; Visit Provider Psychiatry & Neurology Neurology | DX: R42 Dizziness and giddiness (principal); G43.809 Other migraine, not intractable, without status migrainosus; H91.91 Unspecified hearing loss, right ear | CPT/HCPCS: 99443 ==

== ENCOUNTER 2021-04-13 15:14 | Outpatient (CLI) | payer MEDICARE, SELFPAY ==
--- NOTE | 2021-04-13 14:30 | DI.RAD_ITS ---
Exam(s) XR HIP RT AP LAT ONLY EXAM: XR HIP RT AP LAT ONLY INDICATION: annual f/u R LISHA. COMPARISON: XR HIP RT IN OR from 04/01/2020 XR HIP RT IN OR from 04/01/2020 CR XR HIP RT COMPLETE AP PELVIS from 04/14/2020 CR XR HIP MIN 2V LT from 03/27/2021 CR XR HIP MIN 2V LT from 03/27/2021 TECHNIQUE: 2D digital imaging was performed. FINDINGS: There has been no change in the alignment of the right hip prosthesis or appearance of the surroundin g bone. DATA REPOSITORY: RADIATION DOSE DELIVERED:
== END 2021-04-13 15:15 | disposition home or self-care (01) ==
LOC: DIORS 15:15
PROVIDERS: PCP Family Medicine; Referring Provider Family Medicine; Visit Provider Student in an Organized Health Care Education/Training Program
DX: Z96.641 Presence of right artificial hip joint (principal); Z47.1 Aftercare following joint replacement surgery
CPT/HCPCS: 99213; 73502

== ENCOUNTER 2021-06-25 10:36 | Outpatient (CLI) | payer MEDICARE, SELFPAY ==
--- NOTE | 2021-06-25 10:30 | DI.RAD_ITS ---
Exam(s) XR PELVIS AP EXAM: XR PELVIS AP CLINICAL HISTORY: preop TECHNIQUE: COMPARISON: CR XR HIP MIN 2V LT from 03/27/2021 FINDINGS: Single AP view with template ball was obtained. There is total hip joint replacement in position on the right. The components appear well seated. There are severe degenerative changes of the left hip with marked loss of cartilaginous joint space, subchondral sclerosis of the adjacent bones, and prom inent marginal osteophytes of the acetabulum and femoral head. IMPRESSION: RADIATION DOSE DELIVERED: Total DLP
== END 2021-06-25 10:37 | disposition home or self-care (01) ==
PROVIDERS: PCP Family Medicine; Referring Provider Family Medicine; Visit Provider Student in an Organized Health Care Education/Training Program
DX: M16.12 Unilateral primary osteoarthritis, left hip (principal)
CPT/HCPCS: 99213; 72170

== ENCOUNTER → 2021-07-02 13:55 | Outpatient (BNVA) | payer MEDICARE, SELFPAY | PROVIDERS: PCP Family Medicine; Referring Provider Family Medicine | DX: Z01.818 Encounter for other preprocedural examination (principal); M16.12 Unilateral primary osteoarthritis, left hip ==

== ENCOUNTER 2021-07-06 01:23 | Outpatient (CLI) | payer MEDICARE, SELFPAY ==
[2021-07-06 21:09] LABS: COVID-19 PCR Negative (Negative)
[2021-07-06 21:12] LABS: Source Nasal/Nares
== END 2021-07-06 01:24 | disposition home or self-care (01) ==
LOC: LBO 01:23
PROVIDERS: PCP Family Medicine; Visit Provider Student in an Organized Health Care Education/Training Program
DX: Z20.822 Contact with and (suspected) exposure to COVID-19 (principal); Z01.818 Encounter for other preprocedural examination
CPT/HCPCS: 87635

== ENCOUNTER 2021-07-06 01:45 | Outpatient (CLI) | payer MEDICARE, SELFPAY ==
[2021-07-06 10:29] LABS: HCT 47.6 % (36.0-46.0); HGB 15.1 g/dL (11.2-15.7); MCH 27.9 pg (27.0-33.0); MCHC 31.7 % (32.0-36.0); MPV 9.8 fL (8.0-11.0); Platelet Count 278 10^3/uL (130-400); RBC 5.41 10^6/uL (3.93-5.22); RDW 13.4 % (11.7-14.6); RDW-SD 43.4 fL
[2021-07-06 11:01] LABS: Anion Gap 9.9 mmol/L (3-11); BUN 19 mg/dL (7-18); CO2 29.1 mmol/L (21.0-32.0); CREATININE 0.9 mg/dL (0.55-1.02); Calcium 9.8 mg/dL (8.5-10.1); Chloride 98 mmol/L (98-107); Estimated GFR 59.94 (mL/min/1.73m2); Glucose 92 mg/dL (74-106); Potassium 3.8 mmol/L (3.5-5.1); Sodium 137 mmol/L (136-145)
== END 2021-07-06 01:46 | disposition home or self-care (01) ==
LOC: LBO 01:45
PROVIDERS: PCP Family Medicine; Visit Provider Student in an Organized Health Care Education/Training Program
DX: M25.552 Pain in left hip (principal); M16.12 Unilateral primary osteoarthritis, left hip; Z01.818 Encounter for other preprocedural examination; Z01.812 Encounter for preprocedural laboratory examination
CPT/HCPCS: 36415; 80048; 85027; 86850; 86900; 86901

== ENCOUNTER 2021-07-07 06:08 | Day surgery (SDC) | payer MEDICARE, SELFPAY ==
[2021-07-07] VITALS (8 sets, daily range): BP systolic 121–137; BP diastolic 50–71; PULSE 57–76; RESP 13–18; TEMP 36.2–37.1; O2SAT 94–98; BMI 32.2
--- NOTE | 2021-07-07 06:25 | W.PM.DSUDISC ---
Documented by User: Petros Moore MD 07/07/21 08:55 Discharge Plan Disposition Patient Disposition: HOME Condition: Stable Discharge Details Reason For Visit: Left LISHA Attending Provider: Petros Moore Primary Care Provider: Rad Kwok Home Meds and New Rx's Prescriptions: New celecoxib [Celebrex] 200 mg capsule 200 mg PO BID Qty: 60 0RF aspirin 81 mg tablet,delayed release (DR/EC) 81 mg PO BID Qty: 60 0RF pantoprazole [Protonix] 40 mg tablet,delayed release (DR/EC) 40 mg PO DAILY Qty: 30 0RF acetaminophen 500 mg capsule 1,000 mg PO Q8H PRN PRNQty: 90 0RF oxycodone 5 mg tablet 5 mg PO Q4H PRNQty: 18 0RF Continued garlic 1,000 mg capsule 1,000 mg PO DAILY 0RF verapamil 180 mg capsule,ext rel. pellets 24 hr 180 mg PO HS 0RF cholecalciferol (vitamin D3) 25 mcg (1,000 unit) capsule 25 mcg PO DAILY 0RF nitroglycerin 0.4 mg tablet, sublingual 0.4 mg sublingual Q5M PRN0RF Rx Instructions: do not exceed 3 doses per episode chlorthalidone 25 mg tablet 25 mg PO DAILY 0RF Label Comments: TAKE ONE TABLET BY MOUTH EVERY DAY Discontinued aspirin 81 mg tablet,chewable 81 mg PO DAILY 0RF Label Comments: only 3 times a week acetaminophen 500 mg tablet 500 mg PO Q6H PRN (Reason: pain) Qty: 60 2RF Discharge Instructions Additional Instructions: Your hip replacement was aborted today due to heart rhythm changes as well as profound hypotension and bradycardia. Your EKG demonstrated continued left bundle branch block which is per your baseline. Being that you without any symptoms we will have you follow-up as an outpatient with your primary care provider as well as cardiology before moving forward with rescheduling hip replacement surgery. We will be in contact with you for arrangement of these office visits and coordination of rescheduling the hip replacement. You can disregard the medications have been called in the pharmacy and we will call this back when we proceed with a replacement. Referrals: Petros Moore MD [ [facility] STAFF PHYSICIAN] - Equipment/Supplies: Walker Activity:: Activity as Tolerated Remove Dressings/Wound Care:: Do Not Remove Shower/Bathe:: 72 hours Diet:: As Tolerated Discharge Orders Discharge Orders: Discharge Order (Routine); Ordered 07/07/21 Ordered By: Florinda Obrien DS: Diagnosis Discharge Diagnosis (1) Osteoarthritis of left hip: Status: Acute Asessment and Plan: Brynn was admitted to the day surgery unit for a hip replacement of her left hip due to osteoarthritis. Unfortunately in the preinduction phase of her anesthetic she became hypotensive and bradycardic with rhythm lead changes. Due to this constellation of symptoms, although she was in denial of any chest pain or palpitations, the procedure was aborted. She was taken to the PACU for further evaluation and work-up.
[2021-07-07] MEDS: Celecoxib 200 MG CAP 400 MG PO (06:42)
[2021-07-07] MEDS: Acetaminophen 500 MG TAB 1000 MG PO (06:42)
--- NOTE | 2021-07-07 07:04 | ANES.PREOP_ITS ---
General Info Date of Service Date Performed: 07/07/21 Height: 5 ft 4 in Weight: 85.2 kg Body Mass Index (BMI): 32.2 Surgical Procedure: Operation Date: 07/07/21 08:05 Proposed Procedure Side Surgeon p Hip Total Hip Anterior Left Petros Moore MD Meds Allergies and Home Medications Allergies Allergy/AdvReac Type Severity Reaction Status Date / Time levofloxacin [From Levaquin] Allergy Intermediate rash Verified 07/07/21 06:25 meclizine Allergy Intermediate headache,vision Verified 07/07/21 06:25 changes Sulfa (Sulfonamide Allergy Mild rash Verified 07/07/21 06:25 Antibiotics) atorvastatin Allergy vision/hearing Verified 07/07/21 06:25 changes cyclobenzaprine Allergy esophageal Verified 07/07/21 06:25 [From Flexeril] spasm, urinary incontinence egg Allergy Other (See Verified 07/07/21 06:25 Comment) furosemide Allergy Verified 07/07/21 06:25 gabapentin Allergy eye Verified 07/07/21 06:25 spasms, hearing interfernce Home Medication Medication Instructions Recorded cholecalciferol (vitamin D3) 25 25 mcg PO DAILY 03/26/20 mcg (1,000 unit) capsule garlic 1,000 mg capsule 1,000 mg PO DAILY cap 03/26/20 verapamil 180 mg 24 hr 180 mg PO HS 03/26/20 capsule,extended release nitroglycerin 0.4 mg sublingual 0.4 mg SUBLINGUAL Q5M PRN 05/21/20 tablet chlorthalidone 25 mg tablet 25 mg PO DAILY 07/06/21 acetaminophen 500 mg capsule 1,000 mg PO Q8H PRN PRN #90 cap 07/07/21 aspirin 81 mg tablet,delayed 81 mg PO BID #60 tab 07/07/21 release celecoxib 200 mg capsule (Celebrex) 200 mg PO BID #60 cap 07/07/21 oxycodone 5 mg tablet 5 mg PO Q4H PRN #18 tab 07/07/21 pantoprazole 40 mg tablet,delayed 40 mg PO DAILY #30 tab 07/07/21 release (Protonix) Current Visit Medications: Current Medications Generic Name Dose Route Start Last Admin Trade Name Freq PRN Reason Stop Dose Admin Acetaminophen 1,000 mg 07/07/21 06:00 07/07/21 06:42 Acetaminophen 500 Mg Tab PO 07/07/21 16:00 1,000 mg PREOP MADONNA Administration Acetaminophen 1,000 mg 07/07/21 08:30 Acetaminophen 500 Mg Tab PO TID [facility] Aspirin 81 mg 07/07/21 08:30 Aspirin E.C. 81 Mg Tabec PO BID MADONNA Celecoxib 400 mg 07/07/21 06:00 07/07/21 06:42 Celecoxib 200 Mg Cap PO 07/07/21 16:00 400 mg PREOP MADONNA Administration Celecoxib 200 mg 07/07/21 08:30 Celecoxib 200 Mg Cap PO BID MADONNA Docusate Sodium 100 mg 07/07/21 06:22 Docusate Sodium 100 Mg Cap PO BID PRN PRN Constipation Hydromorphone HCl 0.5 mg 07/07/21 06:22 Hydromorphone 2 Mg/Ml Vial IVP Q2H PRN PRN Tranexamic Acid 1,000 mg/ 60 mls @ 360 mls/hr 07/07/21 06:00 Sodium Chloride IV 07/07/21 16:00 PREOP [facility] Ringer's Solution 1,000 mls @ 80 mls/hr 07/07/21 06:00 IV 08/05/21 23:59 INFUSION MADONNA Cefazolin Sodium/Dextrose 2 gm in 50 mls @ 100 mls/hr 07/07/21 06:00 Ancef Duplex IVPB 08/05/21 23:59 PREOP MADONNA Cefazolin Sodium/Dextrose 1 gm in 50 mls @ 100 mls/hr 07/07/21 14:00 Ancef Duplex IVPB 07/08/21 06:29 Q8H MADONNA IV Miscellaneous Supplies 1 each 07/07/21 06:00 Iv Access IV 08/05/21 23:59 DIRECTED MADONNA Ondansetron HCl 4 mg 07/07/21 06:22 Ondansetron 4 Mg/2 Ml Vial IVP Q6H PRN PRN Nausea Oxycodone HCl 0 mg 07/07/21 06:22 Oxycodone 5 Mg Tab PO Q3H PRN PRN Pain Sodium Chloride 0 ml 07/07/21 06:00 Normal Saline Flush 10 Ml Syr IV 08/05/21 23:59 PRN PRN Sodium Chloride 0 ml 07/07/21 06:00 Normal Saline 10 Ml Vial IJ 08/05/21 23:59 DIRECTED PRN Sterile Water 0 ml 07/07/21 06:00 Water,Injection,Sterile 10 Ml Vial IJ 08/05/21 23:59 DIRECTED PRN PFSH Active Problems Active Problems: Problem Status Onset Code Trochanteric bursitis, right hip M70.61 Vertigo R42 Vestibular migraine G43.809 Hearing loss, right H91.91 Chronic ischemic heart disease I25.9 Pulmonary nodules R91.8 Osteoarthritis of left hip M16.12 Medical History Medical History Actinic keratosis Adrenal gland disorder Arthropathy Cerebrovascular disease pt. denies this Claustrophobia Conduction disorder of the heart LBBB COPD (chronic obstructive pulmonary disease) pt. denies this Coronary artery disease Degenerative joint disease of left hip Degenerative joint disease of right hip Depression Disorder of kidney and ureter Dysthymia Edema of both lower extremities GERD (gastroesophageal reflux disease) Hyperlipidemia Hypertension Iliotibial band friction syndrome of both knees Knee pain Left bundle branch block Localized edema Lumbar radiculopathy Nicotine dependence Obesity Sensorineural hearing loss, bilateral (03/28/17) Shadow of lung pulmonary nodules Spinal stenosis, lumbar Strain of muscle at thorax level Thoracic back sprain 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 denies this dx Uterine prolapse Surgical History Surgical History History of cardiac catheterization (~05/1998) History of esophagogastroduodenoscopy (EGD) History of total right hip replacement (04/01/20) Hx of colonoscopy Lesion of lip lower lip precancerous lesion removal Status post carpal tunnel release Right Tobacco Smoking/Tobacco Use Status: Former Tobacco Use Alcohol Alcohol Intake: current Alcohol intake frequency: holidays/special occasions only Alcohol type: hard liquor Substance Use Substance use: Never Substance use type: does not use Vital Signs and Lab Results Vital Signs Most Recent Vital Signs in EMR: Most Recent Vital Signs Temp Pulse Resp BP Pulse Ox 37.1 C 76 16 136/71 94 07/07/21 06:26 07/07/21 06:26 07/07/21 06:26 07/07/21 06:26 07/07/21 06:26 Lab Results Blood Type / Crossmatch: Patient ABO/Rh A Negative 07/06/21 Antibody Screen NEGATIVE 07/06/21 Complete Blood Count: White Blood Count 8.30 10^3/uL (4.4-10.8) 07/06/21 10:12 07/06/21 Red Blood Count 5.41 10^6/uL (3.93-5.22) H 07/06/21 10:12 07/06/21 Hemoglobin 15.1 g/dL (11.2-15.7) 07/06/21 10:12 07/06/21 Hematocrit 47.6 % (36.0-46.0) H 07/06/21 10:12 07/06/21 Platelet Count 278 10^3/uL (130-400) 07/06/21 10:12 07/06/21 Complete Metabolic Panel: Sodium Level 137 mmol/L (136-145) 07/06/21 10:12 07/06/21 Potassium Level 3.8 mmol/L (3.5-5.1) 07/06/21 10:12 07/06/21 Chloride Level 98 mmol/L (98-107) 07/06/21 10:12 07/06/21 Carbon Dioxide Level 29.1 mmol/L (21.0-32.0) 07/06/21 10:12 07/06/21 Blood Urea Nitrogen 19 mg/dL (7-18) H 07/06/21 10:12 07/06/21 Creatinine 0.9 mg/dL (0.55-1.02) 07/06/21 10:12 07/06/21 Estimated GFR/1.73 m2 59.94 (mL/min/1.73m2) 07/06/21 10:12 07/06/21 Calcium Level 9.8 mg/dL (8.5-10.1) 07/06/21 10:12 07/06/21 Glucose Level 92 mg/dL (74-106) 07/06/21 10:12 07/06/21 Liver Function Panel: No Data to Display Coagulation Panel: No Data to Display Cardiac Panel: No Data to Display Arterial Blood Gas: No Data to Display Venous Blood Gas: No Data to Display Pancreas Panel: No Data to Display Thyroid Panel: No Data to Display Infectious Disease: Coronavirus (COVID-19)(PCR) Negative (Negative) 07/06/21 10:22 07/06/21 Coronavirus 2019 Source Nasal/Nares 07/06/21 10:22 07/06/21 Blood Cultures: No Data to Display Toxicology Panel: No Data to Display Anesthesia Assessment and Plan Anesthesia History Personal History: No History of Anesthesia Complications Family History: No Family History of Anesthesia Complications Exercise Tolerance Exercise Tolerance: Metabolic Equivalents>4 Pertinent Negatives Pertinent Negatives: No Symptoms of GERD, No Major Cardiovascular Symptoms or Complaints, No Major Pulmonary Symptoms or Complaints and No History of CVA/TIA Cardiac & Pulmonary Exam Cardiac Exam: Normal S1/S2 Heart Sounds Pulmonary Exam: Clear Bilateral Breath Sounds Implantable Cardiac Device Does patient have a Pacemaker or an ICD?: No Airway Exam Known Difficult Airway: No Mallampati Class: 2 Mouth Opening: Normal (> 3cm) Thyromental Distance: Greater than 3 cm Neck Range of Motion: Full ROM Neck Circumference: Normal Teeth Condition: Removable Dentures/Plates Upper and Removable Dentures/Plates Lower ASA Classification ASA Score: ASA 3 Emergency Case?: No NPO Status NPO Status: NPO Clears >2 hours, Solids >8 hours Anesthesia Plan Resuscitation Status: Full Code Anesthesia Technique: Spinal Anesthesia Airway Planned: Natural Airway Monitors Used: Standard Monitors
[2021-07-07] MEDS: Lactated Ringers 1,000 ML 80 ML IV (07:08)
[2021-07-07] MEDS: ceFAZolin 2 GM/50 ML BAG IVPB (07:37)
--- NOTE | 2021-07-07 07:45 | RT.EKG_ITS ---
APPROVED REPORT Exam: Resting ECG Reason for Exam: New bradycardia Patient Location: O HR:56 bpm ECG Measurements Heart Rate 56 AXIS SD 213 P 38 QRSd 177 QRS -35 QT 531 T 132 QTc 515 Conclusion Sinus bradycardia...rate< 60 Borderline prolonged SD interval...SD >212, V-rate 50- 90 Left bundle branch block...QRSd>120, broad/notched R ST elevation secondary to IVCD...Multiple VCG criteria
--- NOTE | 2021-07-07 09:20 | PDOC.ANES ---
Date of service: 07/07/21 Time of Service: 09:20 Anesthesia Note Report Anesthesia Note: Symptomatic bradycardia in the OR resulting in case cancellation, lowest observed HR of 38, BP 60s/30s. Please see anesthetic record for full VS. 12 lead EKG obtained in PACU. Looking at patients recent history: due to recent cardiac changes (increased dependent edema) and changes to diuretic management I am ordering one troponin and a BMP for this patient. So long as those are stable she is cleared to go home with the education of if she experiences any similar symptoms as today or chest pain to call 911. I would like this patient to follow up with her degreaser operator prior to us seeing her again.
[2021-07-07 09:48] LABS: Anion Gap 7.7 mmol/L (3-11); BUN 14 mg/dL (7-18); CO2 29.3 mmol/L (21.0-32.0); CREATININE 1.1 mg/dL (0.55-1.02); Calcium 9.2 mg/dL (8.5-10.1); Chloride 101 mmol/L (98-107); Estimated GFR 47.55 (mL/min/1.73m2); Glucose 133 mg/dL (74-106); Potassium 3.5 mmol/L (3.5-5.1); Sodium 138 mmol/L (136-145); Troponin I < 50 ng/L (<or=60)
--- NOTE | 2021-07-07 11:33 | NT_ITS ---
Date of service: 07/07/21 Time of Service: 11:33 PT Notes Visit Reasons: Left LISHA Surgery was cancelled today per [facility] [place] [place] Nurse Nora. Thank you for the opportunity to participate in the care of this patient. Libertad De Jesus PT, DPT, CLT [facility] [place], [place]
--- NOTE | 2021-07-07 15:01 | ANES.POST_ITS ---
Postoperative Evaluation Date, Time and Location Date Performed: 07/07/21 Time Performed: 09:30 Patient Location: Day Surgery Unit Vital Signs Most Recent Imported Vital Signs: Most Recent Vital Signs Temp Pulse Resp BP Pulse Ox 36.5 C 72 16 127/71 94 07/07/21 09:31 07/07/21 09:31 07/07/21 09:31 07/07/21 09:31 07/07/21 09:31 Pain Score Most Recent Pain Score: Most Recent Pain Score Pain Level 0 07/07/21 09:31 Assessment Mental Status: Awake (Alert & Oriented to Patient Baseline) Airway and Respiratory Function: Patent airway with normal (patient baseline) respiratory exam Cardiovascular Function: Hemodynamically Stable (HR back to what appears to be baseline LBBB. No available other 12-lead to compare. ) Hydration Status: Adequately Hydrated Nausea & Vomiting: No Nausea or Vomiting Pain: Pt. Denies Any Pain Peripheral Nerve Block: Patient did not receive a nerve block Teaching Patient Teaching: Advised to seek followup for the following concerns (See explanation) Concerns: Cardiac Optimization (Patient to see PCP this coming week and Cardiology in three to four unless needs to be seen sooner. Discussed sx of concern and when to call 911 if necessary. ) Postoperative Comments:: All questions answered. Uncertain of etiology of the decrease in HR though theodore eared to be a junctional rhythm. Negative troponin, denied chest pain, electrolytes looked good prior to discharge.
== END 2021-07-07 11:10 | disposition home or self-care (01) ==
PROVIDERS: Nurse Anesthetist, Certified Registered; PCP Family Medicine; Visit Provider Student in an Organized Health Care Education/Training Program
PROC: (CPT 27130; principal; 2021-07-07 07:45)
DX: M16.12 Unilateral primary osteoarthritis, left hip (principal); Z53.09 Procedure and treatment not carried out because of other contraindication; I44.7 Left bundle-branch block, unspecified; R00.1 Bradycardia, unspecified
CPT/HCPCS: 36415; 80048; 84484; 93005; 93010; J0690; J1100; J2405

== ENCOUNTER → 2021-08-10 01:40 | Outpatient (CLI) | payer MEDICARE, SELFPAY ==
--- NOTE | 2021-08-10 08:45 | DI.NM_ITS ---
APPROVED REPORT Exam: Pharmacologic paired w/ low level exercise Patient Location: Out-Patient Room/Bed: Stress Nurse: Aarti Srinivasan RN Ordering Provider:TROY HENDERSON MD Contact Number: [phone] BMI: 34.56 Baseline Rhythm: Sinus Rhythm, LBBB Indications: CHEST PAIN Medical History Medical History: Vertigo, Ischemic heart disease, Osteoarthritis, LBB, CAD, COPD, Depression, GERD, L ower extremity edema, HLD, HTN Cardiac Medications: Pantoprazole, Nitroglycerin SL, Garlic, Chlorthalidone, Aspirin, Metoprolol succ inate, Potassium supplement, Allergies: Levofloxacin, Meclizine, Sulfa, Atorvastatin, Cyclobenzaprine, Egg, Furosemide, Gabapentin Cardiac Risk Factors: FHX of CAD, HTN, Hyperlipidemia, CVD, COPD, Obesity, Smoking (former) Previous Cardiac Procedures: PCI, no stent, 1998 Pretest Chest Pain Characteristics: No chest pain Exercise History: Sedentary Physical Disabilities: Hips Lung Sounds: Clear to auscultation Heart Sounds: Regular Stress Test Details Test: Pharmacologic stress was paired with low level exercise. Reason for pharmacologic stress test: LBBB. Nuclear Acquisition: Rest Tc-99m/Stress Tc-99m 1 day Rest Isotope: Tc-99m Sestamibi. Dose: 11.3 Date: 08/10/2021 Injection Time: 0830 Stress Isotope: Tc-99m Sestamibi. Dose: 36.0 Date: 08/10/2021 Injection Time: 0950 HR Resting HR Supine: 64 bpm Max Heart Rate (APMHR): 138 bpm Resting HR Standin bpm Target HR (85% APMHR): 117 bpm Max HR Achieved: 132 bpm % of APMHR: 95 Recovery HR: 83 bpm BP Resting BP Supine: 130/80 mmHg Resting BP Standin/84 mmHg Max BP: 178/84 mmHg Recovery BP: 142/80 mmHg ECG Resting ECG: Sinus Rhythm, LBBB Ectopy: None Comment: T wave inversions noted in leads I and aVL. Stress ECG: Sinus Tachycardia, LBBB ST Change: Downsloping/Horizontal ST depression Lead(s): II, III, aVF, V6 Maximum ST Deviation: 4 mm Arrhythmia: PACs Recovery ECG: Sinus Rhythm, LBBB Recovery ST Change: Horizontal ST depression Lead(s): II, III, aVF, V6 Recovery ST Deviation: 2 mm Recovery Arrhythmia: PACs Clinical Stress Symptoms: Dyspnea, Headache Rate Pressure Product: [id number] Stress ECG Conclusion 1. Resting electrocardiogram showed a left bundle branch block 2. Patient underwent exercise testing with pharmacologic stress. Peak heart rate achieved was 95% of predicted for age 3. The electrocardiographic portion of the test was nondiagnostic due to the resting LBBB 4. See MPI report Stress Test Summary STAGE HR BP Symptoms NOTES Supine 64 130/80 1 min post Lexiscan injection 112 152/84 SpO2 96%, c/o mod. SOB 3 min post Lexiscan injection 120 178/84 c/o NGUYEN 6 min post Lexiscan injection 95 160/78 9 min post Lexiscan injection 86 158/78 symptoms resolved. 12 min post Lexiscan injection 83 142/80 STANDING 69 136/84 SpO2 98% Patient received lexiscan injection while walking on treadmill at 1.3 mph / 0% grade. Patient did not endorse any chest pain during test. MPI Conclusion Normal myocardial perfusion without evidence of ischemia or prior infarction EF 62%, normal wall motion Radiologist Interpretation Radiologist agrees with Technical Specialist Cytology's Interpretation. Radiologist Interpretation by: Magy Zuleta MD Interpretation Date/Time: 08/11/2021 11:54:17
[2021-08-10] MEDS: Regadenoson 0.4 MG/5 ML SYR IVP (09:47)
== END ==
PROVIDERS: PCP Family Medicine; Visit Provider Internal Medicine Interventional Cardiology
DX: R07.89 Other chest pain (principal)
CPT/HCPCS: 78452; 93016; 93018; 93017; J2785

== ENCOUNTER → 2021-10-21 13:45 | Outpatient (BNVA) | payer MEDICARE, SELFPAY | PROVIDERS: PCP Family Medicine; Referring Provider Family Medicine; Visit Provider Physician Assistant Surgical | DX: M16.12 Unilateral primary osteoarthritis, left hip (principal) ==

== ENCOUNTER 2021-10-26 03:11 | Outpatient (CLI) | payer MEDICARE, SELFPAY | END 2021-10-26 03:12 | disposition home or self-care (01) | PROVIDERS: PCP Family Medicine; Visit Provider Student in an Organized Health Care Education/Training Program ==

== ENCOUNTER 2021-10-26 03:35 | Outpatient (CLI) | payer MEDICARE, SELFPAY ==
[2021-10-26 11:37] LABS: HCT 41.9 % (36.0-46.0); HGB 13.4 g/dL (11.2-15.7); MCH 28.5 pg (27.0-33.0); MCV 89 fL (80-95); MPV 9.8 fL (8.0-11.0); Platelet Count 268 10^3/uL (130-400); RBC 4.71 10^6/uL (3.93-5.22); RDW 14.6 % (11.7-14.6); RDW-SD 47.8 fL; WBC 9.81 10^3/uL (4.4-10.8)
[2021-10-26 12:31] LABS: Anion Gap 7.6 mmol/L (3-11); BUN 16 mg/dL (7-18); CO2 29.4 mmol/L (21.0-32.0); CREATININE 0.9 mg/dL (0.55-1.02); Calcium 9.1 mg/dL (8.5-10.1); Chloride 102 mmol/L (98-107); Estimated GFR 59.94 (mL/min/1.73m2); Glucose 95 mg/dL (74-106); Sodium 139 mmol/L (136-145)
[2021-10-26 13:47] LABS: Source Nasal/Nares
[2021-10-26 21:01] LABS: COVID-19 PCR Negative (Negative)
== END 2021-10-26 03:36 | disposition home or self-care (01) ==
LOC: LBO 03:36
PROVIDERS: PCP Family Medicine; Visit Provider Student in an Organized Health Care Education/Training Program
DX: M25.552 Pain in left hip (principal); M16.12 Unilateral primary osteoarthritis, left hip; Z20.822 Contact with and (suspected) exposure to COVID-19; Z01.818 Encounter for other preprocedural examination; Z01.812 Encounter for preprocedural laboratory examination
CPT/HCPCS: 36415; 80048; 85027; 87635; U0005

== ENCOUNTER 2021-10-27 05:54 | Day surgery (SDC) | payer MEDICARE, SELFPAY ==
[2021-10-27 06:10] VITALS: BP 162/78; PULSE 59; RESP 16; TEMP 37; O2SAT 96
[2021-10-27] MEDS: Lactated Ringers 1,000 ML 80 ML IV (06:42)
[2021-10-27] MEDS: Acetaminophen 500 MG TAB 1000 MG PO (06:42)
[2021-10-27] MEDS: Celecoxib 200 MG CAP 400 MG PO (06:42)
--- NOTE | 2021-10-27 06:59 | W.ANESPRE ---
General Info Date of Service Date Performed: 10/27/21 Height: 5 ft 4 in Weight: 86.5 kg Body Mass Index (BMI): 32.7 Surgical Procedure: Operation Date: 10/27/21 07:50 Proposed Procedure Side Surgeon p Hip Total Hip Anterior Left Petros Moore MD Meds Allergies and Home Medications Allergies Allergy/AdvReac Type Severity Reaction Status Date / Time levofloxacin [From Levaquin] Allergy Intermediate rash Verified 10/27/21 06:06 meclizine Allergy Intermediate headache,vision Verified 10/27/21 06:06 changes Sulfa (Sulfonamide Allergy Mild rash Verified 10/27/21 06:06 Antibiotics) atorvastatin Allergy vision/hearing Verified 10/27/21 06:06 changes cyclobenzaprine Allergy esophageal Verified 10/27/21 06:06 [From Flexeril] spasm, urinary incontinence egg Allergy Other (See Verified 10/27/21 06:06 Comment) furosemide Allergy Verified 10/27/21 06:06 gabapentin Allergy eye Verified 10/27/21 06:06 spasms, hearing interfernce Home Medication Medication Instructions Recorded cholecalciferol (vitamin D3) 25 25 mcg PO DAILY 03/26/20 mcg (1,000 unit) capsule garlic 1,000 mg capsule 1,000 mg PO DAILY 03/26/20 nitroglycerin 0.4 mg sublingual 0.4 mg sublingual Q5M PRN 05/21/20 tablet acetaminophen 500 mg capsule 1,000 mg PO Q8H PRN PRN #90 caps 07/07/21 aspirin 81 mg tablet,delayed 81 mg PO DAILY 10/22/21 release ezetimibe 10 mg tablet 10 mg PO DAILY 10/22/21 losartan 25 mg tablet 25 mg PO BID 10/22/21 metoprolol succinate 25 mg capsule 25 mg PO DAILY 10/22/21 sprinkle, ext. release 24 hr Current Visit Medications: Current Medications Generic Name Dose Route Start Last Admin Trade Name Freq PRN Reason Stop Dose Admin Acetaminophen 1,000 mg 10/27/21 06:00 10/27/21 06:42 Acetaminophen 500 Mg Tab PO 10/27/21 16:00 1,000 mg PREOP MADONNA Administration Celecoxib 400 mg 10/27/21 06:00 10/27/21 06:42 Celecoxib 200 Mg Cap PO 10/27/21 16:00 400 mg PREOP MADONNA Administration Tranexamic Acid 1,000 mg/ 60 mls @ 360 mls/hr 10/27/21 06:00 Sodium Chloride IV 10/27/21 16:00 PREOP MADONNA Ringer's Solution 1,000 mls @ 80 mls/hr 10/27/21 06:00 10/27/21 06:42 IV 11/19/21 23:59 80 mls/hr INFUSION MADONNA Administration Cefazolin Sodium/Dextrose 2 gm in 50 mls @ 100 mls/hr 10/27/21 06:00 Ancef Duplex IVPB 10/27/21 23:59 PREOP MADONNA IV Miscellaneous Supplies 1 each 10/27/21 06:00 Iv Access IV 11/19/21 23:59 DIRECTED MADONNA Sodium Chloride 0 ml 10/27/21 06:00 Normal Saline Flush 10 Ml Syr IV 11/19/21 23:59 PRN PRN Sodium Chloride 0 ml 10/27/21 06:00 Normal Saline 10 Ml Vial IJ 11/19/21 23:59 DIRECTED PRN Sterile Water 0 ml 10/27/21 06:00 Water,Injection,Sterile 10 Ml Vial IJ 11/19/21 23:59 DIRECTED PRN PFSH Active Problems Active Problems: Problem Status Onset Code Trochanteric bursitis, right hip M70.61 Vertigo R42 Vestibular migraine G43.809 Hearing loss, right H91.91 Chronic ischemic heart disease I25.9 Pulmonary nodules R91.8 Osteoarthritis of left hip M16.12 Medical History Medical History Actinic keratosis Adrenal gland disorder Arthropathy Cerebrovascular disease pt. denies this Claustrophobia Conduction disorder of the heart LBBB COPD (chronic obstructive pulmonary disease) pt. denies this Coronary artery disease Degenerative joint disease of left hip Degenerative joint disease of right hip Depression Disorder of kidney and ureter Dysthymia Edema of both lower extremities GERD (gastroesophageal reflux disease) Hyperlipidemia Hypertension Iliotibial band friction syndrome of both knees Knee pain Left bundle branch block Localized edema Lumbar radiculopathy Nicotine dependence Obesity Sensorineural hearing loss, bilateral (03/28/17) Shadow of lung pulmonary nodules Spinal stenosis, lumbar Strain of muscle at thorax level Thoracic back sprain 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 denies this dx Uterine prolapse Medical History Comments:: see note on last faile LISHA for symptomatic bradycardia Surgical History Surgical History History of cardiac catheterization (~05/1998) History of esophagogastroduodenoscopy (EGD) History of total right hip replacement (04/01/20) Hx of colonoscopy Lesion of lip lower lip precancerous lesion removal Status post carpal tunnel release Right Tobacco Smoking/Tobacco Use Status: Former Tobacco Use Alcohol Alcohol Intake: current Alcohol intake frequency: holidays/special occasions only Alcohol type: hard liquor Substance Use Substance use: Never Substance use type: does not use Vital Signs and Lab Results Vital Signs Most Recent Vital Signs in EMR: Most Recent Vital Signs Temp Pulse Resp BP Pulse Ox 37.0 C 59 L 16 162/78 H 96 10/27/21 06:10 10/27/21 06:10 10/27/21 06:10 10/27/21 06:10 10/27/21 06:10 Lab Results Blood Type / Crossmatch: No Data to Display Complete Blood Count: White Blood Count 9.81 10^3/uL (4.4-10.8) 10/26/21 11:00 Red Blood Count 4.71 10^6/uL (3.93-5.22) 10/26/21 11:00 Hemoglobin 13.4 g/dL (11.2-15.7) 10/26/21 11:00 Hematocrit 41.9 % (36.0-46.0) 10/26/21 11:00 Platelet Count 268 10^3/uL (130-400) 10/26/21 11:00 Complete Metabolic Panel: Sodium Level 139 mmol/L (136-145) 10/26/21 11:00 Potassium Level 5.0 mmol/L (3.5-5.1) 10/26/21 11:00 Chloride Level 102 mmol/L (98-107) 10/26/21 11:00 Carbon Dioxide Level 29.4 mmol/L (21.0-32.0) 10/26/21 11:00 Blood Urea Nitrogen 16 mg/dL (7-18) 10/26/21 11:00 Creatinine 0.9 mg/dL (0.55-1.02) 10/26/21 11:00 Estimated GFR/1.73 m2 59.94 (mL/min/1.73m2) 10/26/21 11:00 Calcium Level 9.1 mg/dL (8.5-10.1) 10/26/21 11:00 Glucose Level 95 mg/dL (74-106) 10/26/21 11:00 Liver Function Panel: No Data to Display Coagulation Panel: No Data to Display Cardiac Panel: No Data to Display Arterial Blood Gas: No Data to Display Venous Blood Gas: No Data to Display Pancreas Panel: No Data to Display Thyroid Panel: No Data to Display Infectious Disease: Coronavirus (COVID-19)(PCR) Negative (Negative) 10/26/21 11:29 Coronavirus 2019 Source Nasal/Nares 10/26/21 11:29 Blood Cultures: No Data to Display Toxicology Panel: No Data to Display Imaging and Studies Imaging and Studies Study information below may be from another EMR and interpreted by another provider. Please see original notes in EMR for more complete details. EKG Summary: Conclusion Sinus bradycardia...rate< 60 Borderline prolonged WI interval...WI >212, V-rate 50- 90 Left bundle branch block...QRSd>120, broad/notched R ST elevation secondary to IVCD...Multiple VCG criteria Stress Test Summary: Stress ECG Conclusion 1. Resting electrocardiogram showed a left bundle branch block 2. Patient underwent exercise testing with pharmacologic stress. Peak heart rate achieved was 95% of predicted for age 3. The electrocardiographic portion of the test was nondiagnostic due to the resting LBBB 4. See MPI report Anesthesia Assessment and Plan Anesthesia History Personal History: Other Family History: No Family History of Anesthesia Complications Exercise Tolerance Exercise Tolerance: Metabolic Equivalents>4 Pertinent Negatives Pertinent Negatives: No Major Pulmonary Symptoms or Complaints Cardiac & Pulmonary Exam Cardiac Exam: Normal S1/S2 Heart Sounds Pulmonary Exam: Clear Bilateral Breath Sounds Implantable Cardiac Device Does patient have a Pacemaker or an ICD?: No Airway Exam Known Difficult Airway: No Mallampati Class: 2 Mouth Opening: Normal (> 3cm) Thyromental Distance: Greater than 3 cm Neck Range of Motion: Full ROM Neck Circumference: Normal Teeth Condition: Removable Dentures/Plates Upper and Removable Dentures/Plates Lower ASA Classification ASA Score: ASA 3 Emergency Case?: No NPO Status NPO Status: NPO Clears >2 hours, Solids >8 hours Anesthesia Plan Resuscitation Status: Full Code Anesthesia Technique: General Anesthesia Airway Planned: Endotracheal Tube Monitors Used: Standard Monitors
--- NOTE | 2021-10-27 07:33 | PDOC.DSDIS_ITS ---
Discharge Plan Disposition Patient Disposition: HOME Condition: Good Discharge Details Reason For Visit: Left Hip DJD Attending Provider: Petros Moore Primary Care Provider: Rad Kwok Home Meds and New Rx's Prescriptions: Continued garlic 1,000 mg capsule 1,000 mg PO DAILY cholecalciferol (vitamin D3) 25 mcg (1,000 unit) capsule 25 mcg PO DAILY aspirin 81 mg tablet,delayed release (DR/EC) 81 mg PO DAILY losartan 25 mg tablet 25 mg PO BID metoprolol succinate 25 mg capsule,sprinkle,ER 24hr 25 mg PO DAILY ezetimibe 10 mg tablet 10 mg PO DAILY nitroglycerin 0.4 mg tablet, sublingual 0.4 mg sublingual Q5M PRN Rx Instructions: do not exceed 3 doses per episode acetaminophen 500 mg capsule 1,000 mg PO Q8H PRN PRNQty: 90 0RF Discharge Instructions Additional Instructions: You will be rescheduled for hip replacement in the next 2 weeks. You will be co ntacted by the office with specifics. Referrals: Petros Moore MD [ [facility] STAFF PHYSICIAN] - Activity:: Activity as Tolerated Diet:: As Tolerated Discharge Orders Discharge Orders: Discharge Order (Routine); Ordered 10/27/21 Ordered By: Petros Moore DS: Diagnosis Discharge Diagnosis (1) Osteoarthritis of left hip: Status: Acute (2) COVID-19: Asessment and Plan: Brynn had COVID-19 with significant symptoms back on October 09 which required the treatment with Paxlovid. Given the treatment necessary for her COVID-19 symptoms she needs to wait a minimum of 4 weeks from the cessation of symptoms given her vaccinated status. Unfortunately, it is not enough time today and therefore we will postpone her surgery until she is at least 4 weeks from the end of her symptoms. I discussed this in detail with Brynn and she understands. All of her questions were answered.
--- NOTE | 2021-10-27 08:20 | NUR.NOTE ---
0800: Surgery cancelled due to recent Covid infection. Breakfast given. Escorted out by RN. Nursing Note:
== END 2021-10-27 06:11 | disposition home or self-care (01) ==
PROVIDERS: PCP Family Medicine; Visit Provider Student in an Organized Health Care Education/Training Program
DX: M16.12 Unilateral primary osteoarthritis, left hip (principal); Z53.09 Procedure and treatment not carried out because of other contraindication; U07.1 COVID-19

== ENCOUNTER 2021-11-09 02:27 | Outpatient (CLI) | payer MEDICARE, SELFPAY ==
[2021-11-09 11:56] LABS: Source Nasal/Nares
[2021-11-09 15:42] LABS: COVID-19 PCR Negative (Negative)
== END 2021-11-09 02:28 | disposition home or self-care (01) ==
LOC: LBO 02:27
PROVIDERS: PCP Family Medicine; Visit Provider Student in an Organized Health Care Education/Training Program
DX: Z20.822 Contact with and (suspected) exposure to COVID-19 (principal); Z01.818 Encounter for other preprocedural examination
CPT/HCPCS: 87635; U0005

== ENCOUNTER 2021-11-11 10:17 | Day surgery (SDC) | payer MEDICARE, SELFPAY ==
[2021-11-11] VITALS (8 sets, daily range): BP systolic 99–182; BP diastolic 38–78; PULSE 47–68; RESP 12–18; TEMP 35.2–36.4; O2SAT 92–100; BMI 32.8
[2021-11-11] MEDS: Acetaminophen 500 MG TAB 1000 MG PO ×3 (10:28→19:49)
[2021-11-11] MEDS: Celecoxib 200 MG CAP 400 MG PO (10:28)
--- NOTE | 2021-11-11 10:42 | W.PM.DS.N ---
DS: Diagnosis Discharge Diagnosis (1) Osteoarthritis of left hip: Status: Acute Discharge Plan Disposition Patient Disposition: HOME Condition: Good Discharge Details Reason For Visit: Left hip DJD Admit Date/Time: 11/11/21 10:36 Admit Provider: Petros Moore Attending Provider: Petros Moore Primary Care Provider: Rad Kwok Hospital Course Hospital Course: Patient was admitted to the medical/surgical floor following the procedure. The surgery was tolerated well without any notable medical, surgical, or anesthetic complications. Mobilization began postoperatively. She was voiding spontaneously. Vitals were stable. Physical therapy worked with the patient and was cleared for discharge home. No acute medical issues. Pain was controlled on oral regimen. Home Meds and New Rx's Prescriptions: New celecoxib [Celebrex] 200 mg capsule 200 mg PO BID Qty: 30 0RF aspirin 81 mg tablet,delayed release (DR/EC) 81 mg PO BID 30 Days Qty: 60 0RF acetaminophen 500 mg tablet 1,000 mg PO Q8H PRN Qty: 90 0RF Rx Instructions: Take two tablets up to every 8 hours as needed for pain pantoprazole 40 mg tablet,delayed release (DR/EC) 40 mg PO DAILY Qty: 14 0RF docusate sodium [Colace] 100 mg capsule 100 mg PO BID Qty: 30 0RF oxycodone 5 mg tablet 5 mg PO Q6H PRN (Reason: severe post-operative pain) Qty: 12 0RF Rx Instructions: Take one tablet up to every 6 hours as needed for severe pain Continued garlic 1,000 mg capsule 1,000 mg PO DAILY cholecalciferol (vitamin D3) 25 mcg (1,000 unit) capsule 25 mcg PO DAILY losartan 25 mg tablet 25 mg PO BID metoprolol succinate 25 mg capsule,sprinkle,ER 24hr 25 mg PO DAILY ezetimibe 10 mg tablet 10 mg PO DAILY nitroglycerin 0.4 mg tablet, sublingual 0.4 mg sublingual Q5M PRN Rx Instructions: do not exceed 3 doses per episode Discontinued aspirin 81 mg tablet,delayed release (DR/EC) 81 mg PO DAILY acetaminophen 500 mg capsule 1,000 mg PO Q8H PRN PRNQty: 90 0RF Discharge Instructions Additional Instructions: Total Hip Discharge Instructions Activity: The most important activity is to walk. You should try to take short walks a few times a day. You have no restrictions on movement or positioning, but do not try to force what you do. You will find some stiffness and weakness with hip flexion (lifting your knee). Do not try to strengthen this too early, continue to practice walking and stairs and this will come. - Outpatient physical therapy can be helpful to help return you to a normal gait and improve your flexibility and strength. This can start around 2 weeks. For some patients, it?s not necessary. Usually this is determined at the time of discharge or at the first post-operative visit. - You should wear the JOSEPH hose on both legs for 2 weeks. Dressing: Keep the surgical dressing in place for at least one week. After the first week it may be removed and replace with light gauze and tape or nothing. It may get wet after 3 days but avoid soaking the dressing. If it gets wet, just lightly pat dry. It is important to always keep some gauze between skin folds, especially when you are sitting. Spend some time with the wound exposed when you are lying flat as the incision does wrinkle onto itself. Medications: - You should take Tylenol and an anti-inflammatory Celebrex as your primary pain control medications. If the Celebrex is too expensive or not covered, please call the office for another alternative (Advil/Ibuprofen or Naproxen/Aleve). - You have been prescribed a stronger pain medication Oxycodone for breakthrough pain, take as needed as prescribed. - You have also been prescribed a stomach acid reduction agent Pantoprozole to help reduce stomach acid and reflux. - You will be taking Aspirin 81mg twice a day for DVT prevention unless instructed otherwise. - If you have constipation you should take Colace (which has been prescribed) or Miralax (which is available [id number]). It takes most people 3-4 days to have a bowel movement. Follow-up: 2 weeks If you have any acute concerns or questions, please do not hesitate to contact the office at [phone]. You may contact Dr. Moore with any questions after hours through the hospital at [phone] or on his cell phone at [phone]. Referrals: Petros Moore MD [ [facility] STAFF PHYSICIAN] - Activity:: Activity as Tolerated Equipment/Supplies:: Walker Diet:: As Tolerated DS: Summary Time Spent with Patient providing and/or coordinating discharge services: Less than 30 minutes Status at Discharge Functional status at discharge: uses cane/walker Overall status at discharge: patient is progressing back to baseline Mental Status: mental status grossly normal Speech and Movement: speech and movement normal Mood: congruent mood Affect: normal affect Exam Psych Mental Status: mental status grossly normal Speech and Movement: speech and movement normal Mood: congruent mood Affect: normal affect DS: Data Vitals/I&O Vitals and I&O: Intake & Output 11/10/21 11/10/21 11/11/21 11:59 23:59 11:59 Weight 190 lb 11.198 oz PFSH All Active Problems (Updated 11/11/21 @ 11:13 by Alex Byers CRNA) Trochanteric bursitis, right hip (Acute) Vertigo (Acute) Vestibular migraine (Acute) Hearing loss, right (Acute) Chronic ischemic heart disease (Acute) Pulmonary nodules (Acute) Osteoarthritis of left hip (Acute) Medical History (Updated 11/11/21 @ 11:13 by Alex Byers CRNA) Actinic keratosis Adrenal gland disorder Arthropathy Cerebrovascular disease pt. denies this Claustrophobia Conduction disorder of the heart LBBB COPD (chronic obstructive pulmonary disease) pt. denies this Coronary artery disease COVID-19 10/09/21 tx with paxlovid Degenerative joint disease of left hip Degenerative joint disease of right hip Depression Disorder of kidney and ureter pt. denies this Dysthymia Edema of both lower extremities GERD (gastroesophageal reflux disease) Hyperlipidemia Hypertension Iliotibial band friction syndrome of both knees pt. denies Knee pain Left bundle branch block Localized edema Lumbar radiculopathy Nicotine dependence Obesity Sensorineural hearing loss, bilateral (03/28/17) Shadow of lung pulmonary nodules Spinal stenosis, lumbar pt. 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) Hx of colonoscopy Lesion of lip lower lip precancerous lesion removal Status post carpal tunnel release Right Family History Sister Diabetes Uterine cancer Father Heart disease Mother Heart disease Brother Diabetes Heart disease Parkinsons disease Social History Smoking/Tobacco Use Status: Former Tobacco Use tobacco type: cigarettes Quit Date: 05/23/11 Tobacco: How many years used: 30 Smoking risk assessment performed?: Yes Alcohol Intake: current Alcohol Intake frequency: holidays/special occasions only Alcohol type: hard liquor Drug use: Never Substance use type: does not use Household members: family and other Housing: other Number of Children: 6 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 Pets and animals: Yes Pets and animals: dog(s) and fish Current gender identity: female What is your relationship status?: Panel score (0-1 are the most socially isolated patients): 0 What type of physical activity do you participate in: none Seatbelt use: always Do you feel safe at home: Yes Do you feel safe in your relationship?: Yes Additional Social history: lives alone
[2021-11-11] MEDS: Lactated Ringers 1,000 ML 80 ML IV ×2 (11:32→19:50)
--- NOTE | 2021-11-11 11:48 | ANES.PREOP_ITS ---
General Info Date of Service Date Performed: 11/11/21 Height: 5 ft 4 in Weight: 86.8 kg Body Mass Index (BMI): 32.8 Surgical Procedure: Operation Date: 11/11/21 14:20 Proposed Procedure Side Surgeon p Hip Total Hip Anterior Left Petros Moore MD Meds Allergies and Home Medications Allergies Allergy/AdvReac Type Severity Reaction Status Date / Time levofloxacin [From Levaquin] Allergy Intermediate rash Verified 11/11/21 10:44 meclizine Allergy Intermediate headache,vision Verified 11/11/21 10:44 changes Sulfa (Sulfonamide Allergy Mild rash Verified 11/11/21 10:44 Antibiotics) atorvastatin Allergy vision/hearing Verified 11/11/21 10:44 changes cyclobenzaprine Allergy esophageal Verified 11/11/21 10:44 [From Flexeril] spasm, urinary incontinence egg Allergy Other (See Verified 11/11/21 10:44 Comment) furosemide Allergy Verified 11/11/21 10:44 gabapentin Allergy eye Verified 11/11/21 10:44 spasms, hearing interfernce Home Medication Medication Instructions Recorded cholecalciferol (vitamin D3) 25 25 mcg PO DAILY 03/26/20 mcg (1,000 unit) capsule garlic 1,000 mg capsule 1,000 mg PO DAILY 03/26/20 nitroglycerin 0.4 mg sublingual 0.4 mg sublingual Q5M PRN 05/21/20 tablet ezetimibe 10 mg tablet 10 mg PO DAILY 10/22/21 losartan 25 mg tablet 25 mg PO BID 10/22/21 metoprolol succinate 25 mg capsule 25 mg PO DAILY 10/22/21 sprinkle, ext. release 24 hr acetaminophen 500 mg tablet 1,000 mg PO Q8H PRN pain #90 tabs 11/11/21 aspirin 81 mg tablet,delayed 81 mg PO BID 30 days #60 tabs 11/11/21 release celecoxib 200 mg capsule (Celebrex) 200 mg PO BID #30 caps 11/11/21 docusate sodium 100 mg capsule 100 mg PO BID #30 caps 11/11/21 (Colace) oxycodone 5 mg tablet 5 mg PO Q6H PRN severe 11/11/21 post-operative pain #12 tabs pantoprazole 40 mg tablet,delayed 40 mg PO DAILY #14 tabs 11/11/21 release Current Visit Medications: Current Medications Generic Name Dose Route Start Last Admin Trade Name Randellq PRN Reason Stop Dose Admin Acetaminophen 1,000 mg 11/11/21 06:00 11/11/21 10:28 Acetaminophen 500 Mg Tab PO 11/11/21 16:00 1,000 mg PREOP MADONNA Administration Acetaminophen 1,000 mg 11/11/21 14:00 Acetaminophen 500 Mg Tab PO TID [facility] Aspirin 81 mg 11/11/21 20:00 Aspirin E.C. 81 Mg Tabec PO BID [facility] Celecoxib 400 mg 11/11/21 06:00 11/11/21 10:28 Celecoxib 200 Mg Cap PO 11/11/21 16:00 400 mg PREOP MADONNA Administration Celecoxib 200 mg 11/11/21 20:00 Celecoxib 200 Mg Cap PO BID MADONNA Docusate Sodium 100 mg 11/11/21 10:36 Docusate Sodium 100 Mg Cap PO BID PRN PRN Constipation Hydromorphone HCl 0.5 mg 11/11/21 10:36 Hydromorphone 2 Mg/Ml Vial IVP Q2H PRN PRN Tranexamic Acid 1,000 mg/ 60 mls @ 360 mls/hr 11/11/21 06:00 Sodium Chloride IV 11/11/21 16:00 PREOP MADONNA Ringer's Solution 1,000 mls @ 80 mls/hr 11/11/21 06:00 11/11/21 11:32 IV 12/10/21 23:59 80 mls/hr INFUSION MADONNA Administration Cefazolin Sodium/Dextrose 2 gm in 50 mls @ 100 mls/hr 11/11/21 06:00 Ancef Duplex IVPB 11/11/21 16:00 PREOP MADONNA Cefazolin Sodium/Dextrose 1 gm in 50 mls @ 100 mls/hr 11/11/21 12:00 Ancef Duplex IVPB 11/12/21 04:29 Q8H MADONNA IV Miscellaneous Supplies 1 each 11/11/21 06:00 Iv Access IV 12/10/21 23:59 DIRECTED MADONNA Ondansetron HCl 4 mg 11/11/21 10:36 Ondansetron 4 Mg/2 Ml Vial IVP Q6H PRN PRN Nausea Oxycodone HCl 0 mg 11/11/21 10:36 Oxycodone 5 Mg Tab PO Q3H PRN PRN Pain Pantoprazole Sodium 40 mg 11/12/21 07:30 Pantoprazole 40 Mg Tabcr PO DAILY@0730 MADONNA Polyethylene Glycol 17 gm 11/11/21 10:36 Polyethylene Glycol 3350 17 Gm Packet PO BID PRN PRN Constipation Sodium Chloride 0 ml 11/11/21 06:00 Normal Saline Flush 10 Ml Syr IV 12/10/21 23:59 PRN PRN Sodium Chloride 0 ml 11/11/21 06:00 Normal Saline 10 Ml Vial IJ 12/10/21 23:59 DIRECTED PRN Sterile Water 0 ml 11/11/21 06:00 Water,Injection,Sterile 10 Ml Vial IJ 12/10/21 23:59 DIRECTED PRN PFSH Active Problems Active Problems: Problem Status Onset Code Trochanteric bursitis, right hip M70.61 Vertigo R42 Vestibular migraine G43.809 Hearing loss, right H91.91 Chronic ischemic heart disease 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 denies this Claustrophobia Conduction disorder of the heart LBBB COPD (chronic obstructive pulmonary disease) pt. denies this Coronary artery disease COVID-19 10/09/21 tx with paxlovid Degenerative joint disease of left hip Degenerative joint disease of right hip Depression Disorder of kidney and ureter pt. denies this Dysthymia Edema of both lower extremities GERD (gastroesophageal reflux disease) Hyperlipidemia Hypertension Iliotibial band friction syndrome of both knees pt. denies Knee pain Left bundle branch block Localized edema Lumbar radiculopathy Nicotine dependence Obesity Sensorineural hearing loss, bilateral (03/28/17) Shadow of lung pulmonary nodules Spinal stenosis, lumbar pt. denies this Strain of muscle at thorax level Thoracic back sprain Uterine prolapse Medical History Comments:: see note on last failed LISHA for symptomatic bradycardia Surgical History Surgical History History of cardiac catheterization (~05/1998) History of esophagogastroduodenoscopy (EGD) History of total right hip replacement (04/01/20) Hx of colonoscopy Lesion of lip lower lip precancerous lesion removal Status post carpal tunnel release Right Tobacco Smoking/Tobacco Use Status: Former Tobacco Use Alcohol Alcohol Intake: current Alcohol intake frequency: holidays/special occasions only Alcohol type: hard liquor Substance Use Substance use: Never Substance use type: does not use Vital Signs and Lab Results Vital Signs Most Recent Vital Signs in EMR: Most Recent Vital Signs Temp Pulse Resp BP Pulse Ox 36.1 C L 68 18 182/70 H 97 11/11/21 10:35 11/11/21 10:35 11/11/21 10:35 11/11/21 10:35 11/11/21 10:35 Lab Results Blood Type / Crossmatch: No Data to Display Complete Blood Count: White Blood Count 9.81 10^3/uL (4.4-10.8) 10/26/21 11:00 Red Blood Count 4.71 10^6/uL (3.93-5.22) 10/26/21 11:00 Hemoglobin 13.4 g/dL (11.2-15.7) 10/26/21 11:00 Hematocrit 41.9 % (36.0-46.0) 10/26/21 11:00 Platelet Count 268 10^3/uL (130-400) 10/26/21 11:00 Complete Metabolic Panel: Sodium Level 139 mmol/L (136-145) 10/26/21 11:00 Potassium Level 5.0 mmol/L (3.5-5.1) 10/26/21 11:00 Chloride Level 102 mmol/L (98-107) 10/26/21 11:00 Carbon Dioxide Level 29.4 mmol/L (21.0-32.0) 10/26/21 11:00 Blood Urea Nitrogen 16 mg/dL (7-18) 10/26/21 11:00 Creatinine 0.9 mg/dL (0.55-1.02) 10/26/21 11:00 Estimated GFR/1.73 m2 59.94 (mL/min/1.73m2) 10/26/21 11:00 Calcium Level 9.1 mg/dL (8.5-10.1) 10/26/21 11:00 Glucose Level 95 mg/dL (74-106) 10/26/21 11:00 Liver Function Panel: No Data to Display Coagulation Panel: No Data to Display Cardiac Panel: No Data to Display Arterial Blood Gas: No Data to Display Venous Blood Gas: No Data to Display Pancreas Panel: No Data to Display Thyroid Panel: No Data to Display Infectious Disease: Coronavirus (COVID-19)(PCR) Negative (Negative) 11/09/21 11:18 Coronavirus 2019 Source Nasal/Nares 11/09/21 11:18 Blood Cultures: No Data to Display Toxicology Panel: No Data to Display Imaging and Studies Imaging and Studies Study information below may be from another EMR and interpreted by another provider. Please see original notes in EMR for more complete details. EKG Summary: 06/2021: [place], [place] 212, LBBB. Stress Test Summary: 07/2021:LBBB, 95% predicted, normal perfusion, 62% EF Anesthesia Assessment and Plan Anesthesia History Personal History: Other Family History: No Family History of Anesthesia Complications Exercise Tolerance Exercise Tolerance: Metabolic Equivalents>4 Pertinent Negatives Pertinent Negatives: No Major Pulmonary Symptoms or Complaints (denies COPD) and No History of CVA/TIA Cardiac & Pulmonary Exam Cardiac Exam: Normal S1/S2 Heart Sounds Pulmonary Exam: Clear Bilateral Breath Sounds Implantable Cardiac Device Does patient have a Pacemaker or an ICD?: No Airway Exam Known Difficult Airway: No Mallampati Class: 2 Mouth Opening: Normal (> 3cm) Thyromental Distance: Greater than 3 cm Neck Range of Motion: Full ROM Neck Circumference: Normal Teeth Condition: Removable Dentures/Plates Upper and Removable Dentures/Plates Lower ASA Classification ASA Score: ASA 3 Emergency Case?: No NPO Status NPO Status: NPO Clears >2 hours, Solids >8 hours Anesthesia Plan Resuscitation Status: Full Code Anesthesia Technique: Spinal Anesthesia (Backup General Anesthetic ) Airway Planned: Natural Airway Monitors Used: Standard Monitors Preoperative Comments:: 81 yo female for LISHA. she was previous scheduled, but case was canceled due to bradycardia. She followed up cardiology after this event. Sig PMHx: COPD, HTN (b/p have been 130/60-160/78 her past few visits), CAD, LBBB.
--- NOTE | 2021-11-11 12:15 | DI.RAD_ITS ---
Exam(s) XR HIP LT IN OR EXAM: XR HIP LT IN OR CLINICAL HISTORY: OSTEOARTHRITIS LEFT HIP TECHNIQUE: 2D and realtime digital imaging was performed. CONTRAST MATERIAL: Refer to procedure report. COMPARISON: No exams were available for comparison FINDINGS: Fluoroscopy was provided for Dr. Moore during the performance of a placement of a left hip prosth esis.. Please refer to the procedure report for complete details. Ka,r=5.93 mGy IMPRESSION: RADIATION DOSE DELIVERED:
[2021-11-11] MEDS: ceFAZolin 2 GM/50 ML BAG IVPB (13:15)
--- NOTE | 2021-11-11 14:40 | ROE_ITS ---
Date of service: 11/11/21 Time of Service: 14:40 Operative Note Operative Note DATE OF PROCEDURE: 11/11/21 PRE-OP DIAGNOSIS: Left Hip Osteoarthritis POST-OP DIAGNOSIS: same PROCEDURE: Left Anterior Total Hip Arthroplasty with Intraoperative Navigation SURGEON: Petros Moore ARCHITECT NAVAL: Francie Arreola ANESTHESIA TYPE: Spinal Refer to Anesthesia Record ESTIMATED BLOOD LOSS: 200 PATHOLOGY: none sent TOURNIQUET TIME: 0 COMPLICATIONS: None Patient was transported to: PACU Patient's condition: stable Implants: 1. Depuy [place] Acetabular Component, 50mm 2. Depuy Acetabular Liner, [id number] 3. Depuy Corail Coxa Vara Collared Femoral Stem, Size 9 4. Depuy Altrx Ceramic Femoral Head, Size 32+5mm Indications: I have seen Brynn in clinic for symptoms of hip arthritis, confirmed with radiographic findings. Brynn has exhausted nonoperative methods and was having significant limitations in daily function and desired better function and less pain. I discussed the technical details of a hip replacement. I explained the risks of the procedure to include, but not limited to, bleeding, infection, pain, stiffness, fracture, damage to nerves and vessels, damage to muscles and tendons, loosening, instability, leg length inequality, need for repeat pro cedure, blood clot and cardiopulmonary demise. Despite these risks, Brynn elected to proceed. Findings: There was significant signs of arthritis throughout the hip. Procedure Description: Brynn was greeted in the preoperative holding area where the correct side was identified and marked. The consent was reviewed with the patient and signed. The history and physical was updated. All questions were answered. She was taken back to the operating room. A spinal anesthestic was then administered. The feet were wrapped with cast padding and Coban and then placed into the boot liners and then into the boots. Care was taken to protect the skin and make sure the heels were fully down and the boots were stable. The patient was then positioned onto the HANA table. Both legs were held in a neutral position. SCDs were applied. The patient was then slid down onto a peroneal post. Prophylactic antibiotics in the form of Cefazolin were administered. 1g of Tranxemic Acid was given intravenously within 30 minutes of incision. The left leg was then prepped with Chloraprep and draped in a standard fashion. A second prep with Chloraprep was performed prior to placement of a shower-curtain type drape with Iodine impregnated skin protection. A timeout to confirm correct identity, side and site, procedure, allergies, anesthesia, and medical concerns was performed. An obliquely oriented incision was made starting lateral to the ASIS and running distal over the Tensor Fascia Anayeli (TFL) muscle belly toward the fibular head, approximately 10cm. The skin and soft tissue was dissected sharply, through Tevin?s fascia, and to the fascia of the TFL. With the fascia and superior border of the IT band identified, the fascia was incised with a new knife just above any perforators from the IT band. The TFL muscle belly was bluntly dissected away from the fascia and moved laterally. The fat between TFL and rectus was identified to ensure the dissection was not within the TFL. Blunt dissection created space between abductors and the capsule and retractor was placed over the lateral femoral neck. The fibers of the rectus femoris tendon were identified and these were freed from the anterior capsule. A second cobra retractor was placed around the medial femoral neck. The TFL was further retracted laterally to show the deep fascia. Careful dissection through this layer identified three main crossing vessels of the lateral femoral circumflex. These were cauterized in multiple locations and then cut without any noticeable bleeding. The TFL was further released bluntly from the deep fascia to expose anterior hip capsule and fat The Keith orthopaedic retractor was then placed beneath the TFL and against sartorius and medial soft tissues to protect and retract the soft tissues. A T-capsulotomy was then performed starting at the superior lateral acetabulum and moving distally to the intertrochanteric ridge. These capsular flaps were tagged with a No. 1 Ethibond and elevated from within. The capsular flaps were released to the shoulder of the lateral neck and to the lesser trochanter to give excellent visualization of the proximal femur. A neck osteotomy was performed using an oscillating saw based on preoperative templates. This cut started in the shoulder and of the lateral neck and exited medially. The saw was at all times directed medially to avoid injury to the greater trochanter. Gross traction was applied to the leg and the osteotomy opened. The femoral head was removed with a corkscrew, making sure to protect the TFL on its exit. Traction was released after head removal. This was measured on the back table to determine the starting reamer size. Portions of the rectus obscuring visualization were minimally elevated off the superior acetabulum. An anterior retractor was placed over the anterior wall between capsule and labrum and attached to the Gripper retraction system. The femur was rotated to 90 degrees and medial capsule was fully released until the lesser trochanter was palpable and visible; the femur was returned to 30 degrees. A posterior retractor was placed similarly between capsule and labrum. This provided excellent visualization. The contents of the cotyloid fossa were removed with electrocautery and the labrum was removed with a knife. There was a notable floor osteophyte. There was significant chondromalacia of the superior acetabulum. Acetabular reaming began with a 46mm reamer. This first reaming was directed anterior to posterior and medial to get down to the true floor. This was inspected and reamed until the true floor was reached. The anterior retractor was then released and entry and exit was provided by traction on the capsular flaps. I then reamed sequentially up to a 50mm reamer where good fit was obtained. The larger reamers were oriented based on anatomical reference of the anterior and lateral barrientos to ensure proper abduction and anteversion. Positioning and size was confirmed with the fluoroscopy. A 50mm Depuy [place] acetabular component was selected. The acetabulum was reamed around the periphery with the selected acetabular size to prevent a rim fit. The deep tissues were irrigated. The acetabular component was then impacted in a position of about 40-45 degrees of abduction and 15-20 degrees of anteversion, using the patient?s anatomy as the ultimate landmark. Fluoroscopy was used to confirm this. There was excellent capacity planning manager of the acetabular component and the inserting handle was removed. The acetabular liner, Depuy [id number] polyethylene liner, was inserted and lined up with the tines of the acetabular component. There was no soft tissue interposition. The liner was then impacted into position and confirmed to be well-seated. A portion of the sandhya-articular cocktail was then injected around the acetabulum into the capsule and periosteum. This cocktail consisted of 123mg of Ropivacaine, 0.25mg of Epinephrine, 0.04mg of Clonidine, and 15mg of Ketorolac, diluted to 50cc. The leg was rotated to 120 degrees. Any remaining medial capsule was released until the lesser trochanter was easily palpable. A retractor was placed medially. The lateral capsule was further released into the shoulder to allow access to the greater trochanter. A Ellis retractor was placed over the greater trochanter which allowed the trochanter to flip in front of the capsule for excellent exposure. The leg was brought down into maximal extension and 20 degrees of adduction while ensuring there was no impingement on the acetabulum. Any remnant capsule within the trochanter was released. Piriformis and obturator externis were identified and protected. There was excellent access to the proximal femur. The lateral neck remnant was removed with a rongeur. A blunt canal probe was used to identify the canal and trajectory for later broaching. A box osteotome initiated the broach course. A small curved rasp and a curved curette were used to work laterally. Broaching then began with a size 8 Corail broach. This was inserted manually around the trochanter and into the canal before mallet blows. The broach was seated to a few millimeters below the cut level based on the neck cut and the preoperative template. Sequential broaching was continued with the Booml[place]onse pneumatic broaching device until a tight fit was obtained with good rotational control of the femur. A trial coxa vara neck was inserted along with a +1 trial head. The leg was brought out of extension and adduction and then reduced with traction and internal rotation. The leg was stable anteriorly in a position of 30 degrees of extension and 90 degrees of external rotation. Fluoroscopy was used to ensure there was no fracture and the stem was seated well. Leg lengths were checked with an AP pelvis and pelvic reference points. Dermal Life navigation system was used to confirm appropriate positioning and leg length and offset. This was advanced 6mm based on the navigation. Once content with the desired offset and leg lengths, the leg was brought back into extension, external rotation and adduction. The periosteum and surrounding tissue was injected with remaining portion of the sandhya-articular cocktail. The proximal femur was irrigated as well as the deep tissues. The Depuy Corail Coxa Vara collared stem, size 9, was then manually inserted into the proximal femur making sure to control rotation. It was then malleted into position with light blows, giving breaks to allow bone expansion and decrease risk of fracture. The selected Depuy Altrx Ceramic Head, size 32+5mm, was then placed onto the clean and dry trunnion and secured with im paction onto the tapered fit. The leg was brought back out of extension and adduction and reduced with traction and internal rotation. Stability was confirmed with no shuck at 90 degrees of external rotation and 30 degrees of extension. No impingement through range of motion arc. Final x-ray images were obtained with fluoroscopy to confirm adequate positioning and no intraoperative fracture. The deep tissues were thoroughly irrigated with Surgiphor, betadine solution. This was allowed to sit in the wound for 3 minutes before being thoroughly irrigated out with normal saline. The capsule was then reapproximated with the previously placed Ethibond sutures. The TFL fascia was finally closed with a No. 2 Stratafix, barbed suture. Deep tissues were then reapproximated with 0 Vicryl and a running 2-0 Vicryl. The skin was closed with a running 4-0 Monocryl in a subcuticular fashion. This was reinforced with skin glue. A Mepilex silver dressing was applied. At the end of the case, all counts were correct. Brynn was transferred to the hospital bed without difficulty and suffering no apparent complication. Brynn has a good prognosis. Physical therapy will start today and without restrictions, weight-bearing as tolerated. Aspirin 81mg BID will be used for DVT prophylaxis.
--- NOTE | 2021-11-11 15:32 | W.ANESPOSTOP ---
Postoperative Evaluation Date, Time and Location Date Performed: 11/11/21 Time Performed: 15:33 Patient Location: PACU Vital Signs Most Recent Imported Vital Signs: Most Recent Vital Signs Temp Pulse Resp BP Pulse Ox 36.3 C L 49 L 12 149/52 H 99 11/11/21 15:30 11/11/21 15:30 11/11/21 15:30 11/11/21 15:30 11/11/21 15:30 Pain Score Most Recent Pain Score: Most Recent Pain Score Pain Level 0 11/11/21 15:30 Assessment Mental Status: Awake (Alert & Oriented to Patient Baseline) Airway and Respiratory Function: Patent airway with normal (patient baseline) respiratory exam Cardiovascular Function: Hemodynamically Stable Hydration Status: Adequately Hydrated Nausea & Vomiting: No Nausea or Vomiting Pain: Pt. Denies Any Pain Peripheral Nerve Block: Patient did not receive a nerve block
[2021-11-11] MEDS: oxyCODONE 5 MG TAB PO ×2 (16:21→19:50)
--- NOTE | 2021-11-11 17:39 | NUR.NOTE ---
Nursing Note: Patient to [facility] floor at 1534 from PACU. Report received; care of pt. assumed at this time. A&Ox3. VSS. Pt oriented to hospital room, call [place] system, etc. Call monaco within reach. RN will continue to monitor.
[2021-11-11] MEDS: Celecoxib 200 MG CAP PO (19:49)
[2021-11-11] MEDS: Aspirin E.C. 81 MG TABEC PO (19:49)
[2021-11-11] MEDS: ceFAZolin 1 GM/50 ML BAG IVPB (20:28)
[2021-11-11] MEDS: Losartan 25 MG TAB PO (20:28)
[2021-11-12 03:19] VITALS: BP 128/67; PULSE 59; RESP 18; TEMP 36.6; O2SAT 94
[2021-11-12] MEDS: ceFAZolin 1 GM/50 ML BAG IVPB (05:23)
[2021-11-12] MEDS: Celecoxib 200 MG CAP PO (07:34)
[2021-11-12] MEDS: Pantoprazole 40 MG TABCR PO (07:34)
[2021-11-12] MEDS: Aspirin E.C. 81 MG TABEC PO (07:34)
[2021-11-12] MEDS: Losartan 25 MG TAB PO (07:34)
[2021-11-12 07:35] VITALS: BP 138/75; PULSE 62; RESP 15; TEMP 36.6; O2SAT 93
[2021-11-12] MEDS: Acetaminophen 500 MG TAB 1000 MG PO (07:35)
[2021-11-12] MEDS: Cholecalciferol (Vitamin D3) 1,000 UNIT TAB 1000 UNITS PO (08:17)
[2021-11-12] MEDS: Metoprolol CR 25 MG TABCR PO (08:17)
--- NOTE | 2021-11-12 08:28 | IN_ITS ---
PT Notes Visit Reasons: Left hip DJD Inpatient Physical Therapy Evaluation Date: 11/12/21 Referring Doctor: JENNI Nesbitt PT Orders: PT CONSULT: s/p left LISHA 11/11/21 Precautions: standard Patient Profile/Admitting Diagnosis: Patient admitted with left hip OA, post op day 1 s/p left LISHA with anterior approach. PMHX: Medical History? Actinic keratosis Adrenal gland disorder Arthropathy Cerebrovascular disease pt. denies thisClaustrophobia Conduction disorder of the heart LBBBCOPD (chronic obstructive pulmonary disease) pt. denies thisCoronary artery disease Degenerative joint disease of left hip Degenerative joint disease of right hip Depression Disorder of kidney and ureter Dysthymia Edema of both lower extremities GERD (gastroesophageal reflux disease) Hyperlipidemia Hypertension Iliotibial band friction syndrome of both knees Knee pain Left bundle branch block Localized edema Lumbar radiculopathy Nicotine dependence Obesity Sensorineural hearing loss, bilateral (03/28/17) Shadow of lung pulmonary nodulesSpinal stenosis, lumbar Strain of muscle at thorax level Thoracic back sprain 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 denies this dxUterine prolapse Surgical History? 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 Does not do stairs at baseline due to fear of falling. Son and his family live next door, with 3 school aged grandchildren who she sees daily and plan to help her around the house as she recovers. Drives independently. 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 Equipment Owned/DME: [employer] Subjective: Brynn states that she's feeling really good. She reports that she had her right hip replaced by Dr. Moore approx 1 year ago, and that she did not need a walker post-operatively and had no significant pain following that surgery. She's hopeful that this recovery will go just as well. She's anxious to return home later today. Objective: General Observation: Resting in chair at initiation of session. IV in LUE. Mental Status: A&O x 3. Pleasant and cooperative throughout. Pain: soreness in anterior hip with ambulation. ROM: Right Upper Extremity: WFL Left Upper Extremity: WFL Right Lower Extremity: Hip flexion to 100 degrees actively. Knee and ankle motion WNL. Left Lower Extremity: Hip flexion to 90 functionally. Knee and ankle motion WNL. Strength: Right Upper Extremity: WFL Left Upper Extremity: WFL Right Lower Extremity: WFL Left Lower Extremity: Quads 3/5 or greater. Ankle DF 5/5. Bed Mobility/Transfers: sit-stand: independent stand-sit: independent Gait: Patient ambulates 150' with FWW and supervision. She relies minimally on FWW, and is able to ambulate short distances in her room without AD, with demonstration of good balance and safety awareness. Balance: Static Sitting: normal Dynamic Sitting: normal Static Standing: good Dynamic Standing: good Special Tests: Mobility Limitations Standardized Measure [facility] 6 clicks Basic Mobility Inpatient Short Form: Raw Score: 23 CMS Score: 11% impairment Informed Consent/Education: Patient instructed in purpose of PT consult and plan of care. Assessment: Patient is a 81 year old female referred to physical therapy services with the diagnosis of left hip OA s/p left LISHA. Patient presents with clinical signs and symptoms consistent with post-operative status. She demonstrates safety and mobility sufficient to allow for safe return to independent living in the community, as supported by AM-PAC scores. She curr ently demonstrates the following impairment level findings: 1. post-operative discomfort 2. gait impairments 3. decreased activity tolerance Impairments are contributing to the following functional limitations: 1. decreased activity tolerance Patient is assessed as a Low 27420 complexity based on the following: History: Active and independent 81 year old female presenting post op day 1 following left LISHA. Examination: functional limitations as noted above Presentation: stable Decision Making: low complexity Plan of Care/Treatment Plan: D/C home with no services. DISCHARGE RECOMMENDATIONS: Home with no services TREATMENT CODE/TIME: 65518 (8:00-8:20) Ita Sung, PT, DPT [facility]
[2021-11-12] MEDS: Ezetimibe 10 MG TAB PO (09:41)
[2021-11-12] MEDS: Lactated Ringers 1,000 ML 80 ML IV (09:41)
[2021-11-12] MEDS: Normal Saline Flush 10 ML SYR IV (09:46)
[2021-11-12] MEDS: Dexamethasone 4 MG/ML VIAL IVP (09:46)
[2021-11-12 11:30] VITALS: BP 124/57; PULSE 61; RESP 16; TEMP 36.8; O2SAT 93
--- NOTE | 2021-11-12 14:03 | CHAPLAIN ---
Brynn was up in the chair when I visited. She said she didn't expect to stay over night following her surgery yesterday, but her surgery was delayed enough that she ended up being admitted. She hopes to be discharged home today and her son will pick her up. She's worried about her cat and dog at home.
== END 2021-11-11 14:40 | disposition home or self-care (01) ==
LOC: SUR 10:43 → MS 11-12 14:00 → SUR 11-12 15:57
PROVIDERS: PCP Family Medicine; Visit Provider Student in an Organized Health Care Education/Training Program
PROC: (CPT 27130; principal; 2021-11-11 14:00)
DX: M16.12 Unilateral primary osteoarthritis, left hip (principal); I44.7 Left bundle-branch block, unspecified; J44.9 Chronic obstructive pulmonary disease, unspecified; I25.10 Atherosclerotic heart disease of native coronary artery without angina pectoris; F32.A Depression, unspecified; K21.9 Gastro-esophageal reflux disease without esophagitis; I10 Essential (primary) hypertension; E78.5 Hyperlipidemia, unspecified; F17.210 Nicotine dependence, cigarettes, uncomplicated
CPT/HCPCS: 20985; 27130; C1776; 97161; 73501; J0690; J1100; J2370; J2405

== ENCOUNTER 2021-11-26 10:45 | Outpatient (CLI) | payer MEDICARE, SELFPAY ==
--- NOTE | 2021-11-26 10:15 | DI.RAD_ITS ---
Exam(s) XR HIP LT COMPLETE AP PELVIS EXAM: XR HIP LT COMPLETE AP PELVIS CLINICAL HISTORY: 1ST POST OP L LISHA. TECHNIQUE: 2D digital imaging was performed. COMPARISON: No exams were available for comparison FINDINGS: Two views Stable position alignment of the components of recently placed left hip prosthesis. No fracture or l oosening evident. IMPRESSION: DATA REPOSITORY: RADIATION DOSE DELIVERED:
== END 2021-11-26 10:46 | disposition home or self-care (01) ==
LOC: DIORS 10:45
PROVIDERS: PCP Family Medicine; Referring Provider Family Medicine; Visit Provider Physician Assistant
DX: Z96.642 Presence of left artificial hip joint (principal); Z47.1 Aftercare following joint replacement surgery
CPT/HCPCS: 73502

== ENCOUNTER 2021-12-09 14:40 | Emergency (ER) | payer MEDICARE, SELFPAY ==
[2021-12-09 14:44] VITALS: BP 141/58; PULSE 67; RESP 16; TEMP 36.7; O2SAT 94
[2021-12-09 15:23] LABS: Abs Immature Grans 0.05 10^3/uL (0.0-0.06); Absolute Monocyte Count 1.18 10^3/uL (0.1-0.8); Basophils % 0.3; Eosinophils % 2.1; HCT 41.2 % (36.0-46.0); HGB 13.9 g/dL (11.2-15.7); Immature Grans % 0.3; MCH 29.3 pg (27.0-33.0); MCHC 33.7 % (32.0-36.0); MCV 87 fL (80-95); MPV 9.4 fL (8.0-11.0); Monocytes % 7.6; Neutrophils % 78.7; Platelet Count 314 10^3/uL (130-400); RBC 4.75 10^6/uL (3.93-5.22); RDW 14.2 % (11.7-14.6); RDW-SD 45.7 fL; WBC 15.59 10^3/uL (4.4-10.8)
[2021-12-09 15:27] LABS: Absolute Basophil Count 0.05 10^3/uL (0.0-0.2); Absolute Eosinophil Count 0.33 10^3/uL (0.0-0.7); Absolute Lymphocyte Count 1.71 10^3/uL (1.2-3.4); Absolute Neutrophil Count 12.27 10^3/uL (1.2-6.7)
[2021-12-09 15:31] LABS: ESR 39 mm/hr (0-30)
[2021-12-09 15:38] LABS: C-Reactive Protein 0.42 mg/dL (0.0-0.3); Magnesium 2.1 mg/dL (1.8-2.4)
--- NOTE | 2021-12-09 15:42 | ED.GENADUL_ITS ---
Discharge Plan Disposition Patient Disposition: STILL A PATIENT Discharge Details Chief Complaint: Orthopedic Primary Care Provider: Rad Kwok ED Provider: Mihir Wallace Home Meds and New Rx's Prescriptions: No Action garlic 1,000 mg capsule 1,000 mg PO DAILY cholecalciferol (vitamin D3) 25 mcg (1,000 unit) capsule 25 mcg PO DAILY losartan 25 mg tablet 25 mg PO BID metoprolol succinate 25 mg capsule,sprinkle,ER 24hr 25 mg PO DAILY ezetimibe 10 mg tablet 10 mg PO DAILY nitroglycerin 0.4 mg tablet, sublingual 0.4 mg sublingual Q5M PRN Rx Instructions: do not exceed 3 doses per episode celecoxib [Celebrex] 200 mg capsule 200 mg PO BID Qty: 30 0RF aspirin 81 mg tablet,delayed release (DR/EC) 81 mg PO BID 30 Days Qty: 60 0RF acetaminophen 500 mg tablet 1,000 mg PO Q8H PRN Qty: 90 0RF Rx Instructions: Take two tablets up to every 8 hours as needed for pain pantoprazole 40 mg tablet,delayed release (DR/EC) 40 mg PO DAILY Qty: 14 0RF docusate sodium [Colace] 100 mg capsule 100 mg PO BID Qty: 30 0RF oxycodone 5 mg tablet 5 mg PO Q6H PRN (Reason: severe post-operative pain) Qty: 12 0RF Rx Instructions: Take one tablet up to every 6 hours as needed for severe pain Medical Decision Making 81-year-old female here approximately 1 month status post left total hip replacement with increasing pain in her hip over the past 1 week. Patient has had no fevers and is afebrile. Consider septic arthritis versus postoperative pain/complication. Initial labs reviewed and leukocytosis noted with elevated CRP. D-dimer is elevated. Dr. Moore has been consulted regarding hip and evaluated the patient and performed arthrocentesis. Regarding patient's shortness of breath, consider acute pulmonary embolism. D- dimer is elevated. Plan to proceed to CT of the chest. Care signed out to Dr. Luz with plan to follow-up on EKG, CT chest and discuss orthopedic treatment with Dr. Moore. Imaging Data Radiologic Study: Imaging: X-Ray (lt hip) Radiologist's impression: IMPRESSION: Stable appearance of left hip prosthesis. Lab Data Lab results reviewed: Yes I reviewed the patient's lab results. Labs: 12/09/21 16:15 Synovial - Left Hip Body Fluid Culture - Pending 12/09/21 16:15 Synovial - Left Hip Gram Stain - Pending Laboratory Tests Range/Units 12/09/21 12/09/21 12/09/21 15:16 15:16 15:16 WBC (4.4-10.8) 10^3/uL RBC (3.93-5.22) 10^6/uL Hgb (11.2-15.7) g/dL Hct (36.0-46.0) % MCV (80-95) fL MCH (27.0-33.0) pg MCHC (32.0-36.0) % RDW (11.7-14.6) % Plt Count (130-400) 10^3/uL MPV (8.0-11.0) fL Immature Gran % Neutrophils % Lymphocytes % Monocytes % Eosinophils % Basophils % Nucleated RBC % (0.0-0.3) % Absolute Neutrophils (1.2-6.7) 10^3/uL Absolute Lymphocytes (1.2-3.4) 10^3/uL Absolute Monocytes (0.1-0.8) 10^3/uL Absolute Eosinophils (0.0-0.7) 10^3/uL Absolute Basophils (0.0-0.2) 10^3/uL ESR (0-30) mm/hr 39 H D-Dimer (<500) ng/mlFEU 5145 H Sodium (136-145) mmol/L Potassium (3.5-5.1) mmol/L Chloride (98-107) mmol/L Carbon Dioxide (21.0-32.0) mmol/L Anion Gap (3-11) mmol/L BUN (7-18) mg/dL Creatinine (0.55-1.02) mg/dL Estimated GFR/1.73 m2 (mL/min/1.73m2) Glucose (74-106) mg/dL Calcium (8.5-10.1) mg/dL Magnesium (1.8-2.4) mg/dL 2.1 Total Bilirubin (0.2-1.0) mg/dL AST (15-37) U/L ALT (14-59) U/L Alkaline Phosphatase (46-116) U/L Troponin I (<or=60) ng/L C-Reactive Protein (0.0-0.3) mg/dL 0.42 H Total Protein (6.4-8.2) g/dL Albumin (3.4-5.0) g/dL Fluid Source Fluid Color Fluid Clarity Fluid WBC (0) uL Range/Units 12/09/21 12/09/21 12/09/21 15:16 15:16 16:15 WBC (4.4-10.8) 10^3/uL 15.59 H RBC (3.93-5.22) 10^6/uL 4.75 Hgb (11.2-15.7) g/dL 13.9 Hct (36.0-46.0) % 41.2 MCV (80-95) fL 87 MCH (27.0-33.0) pg 29.3 MCHC (32.0-36.0) % 33.7 RDW (11.7-14.6) % 14.2 Plt Count (130-400) 10^3/uL 314 MPV (8.0-11.0) fL 9.4 Immature Gran % 0.3 Neutrophils % 78.7 Lymphocytes % 11.0 Monocytes % 7.6 Eosinophils % 2.1 Basophils % 0.3 Nucleated RBC % (0.0-0.3) % 0.0 Absolute Neutrophils (1.2-6.7) 10^3/uL 12.27 H Absolute Lymphocytes (1.2-3.4) 10^3/uL 1.71 Absolute Monocytes (0.1-0.8) 10^3/uL 1.18 H Absolute Eosinophils (0.0-0.7) 10^3/uL 0.33 Absolute Basophils (0.0-0.2) 10^3/uL 0.05 ESR (0-30) mm/hr D-Dimer (<500) ng/mlFEU Sodium (136-145) mmol/L 136 Potassium (3.5-5.1) mmol/L 4.2 Chloride (98-107) mmol/L 102 Carbon Dioxide (21.0-32.0) mmol/L 26.1 Anion Gap (3-11) mmol/L 7.9 BUN (7-18) mg/dL 14 Creatinine (0.55-1.02) mg/dL 1.0 Estimated GFR/1.73 m2 (mL/min/1.73m2) 53.08 Glucose (74-106) mg/dL 118 H Calcium (8.5-10.1) mg/dL 9.4 Magnesium (1.8-2.4) mg/dL Total Bilirubin (0.2-1.0) mg/dL 0.6 AST (15-37) U/L 20 ALT (14-59) U/L 24 Alkaline Phosphatase (46-116) U/L 115 Troponin I (<or=60) ng/L < 50 C-Reactive Protein (0.0-0.3) mg/dL Total Protein (6.4-8.2) g/dL 8.1 Albumin (3.4-5.0) g/dL 3.9 Fluid Source L Hip Fluid Color Red Fluid Clarity Bloody Fluid WBC (0) uL 909 HPI General Mode of arrival: ambulatory . Date/Time Provider Initiated Documentation: 12/09/21 14:55 . Limitations to Documentation: no limitations . Information obtained by: patient . HPI Narrative: 81-year-old female presents with chief complaint of left hip pain. Patient had uncomplicated total hip replacement 11/12/2019. Patient notes she was doing well for a few weeks after surgery and then developed hip pain about 1 week ago. Pain has progressed and increased since onset. Pain is localized to lateral hip and adjacent to medial incision. Pain is moderate to severe and she notes she has difficulty flexing her hip. Patient denies lower leg pain or swelling. Patient denies associated fever. She does notes some shortness of breath today. She denies associated chest pain. No cough. Related Data Home Medications Medication Instructions Recorded Confirmed cholecalciferol (vitamin D3) 25 25 mcg PO DAILY 03/26/20 12/09/21 mcg (1,000 unit) capsule garlic 1,000 mg capsule 1,000 mg PO DAILY 03/26/20 12/09/21 nitroglycerin 0.4 mg sublingual 0.4 mg sublingual Q5M PRN 05/21/20 12/09/21 tablet ezetimibe 10 mg tablet 10 mg PO DAILY 10/22/21 12/09/21 losartan 25 mg tablet 25 mg PO BID 10/22/21 12/09/21 metoprolol succinate 25 mg capsule 25 mg PO DAILY 10/22/21 12/09/21 sprinkle, ext. release 24 hr acetaminophen 500 mg tablet 1,000 mg PO Q8H PRN pain #90 tabs 11/11/21 12/09/21 aspirin 81 mg tablet,delayed 81 mg PO BID 30 days #60 tabs 11/11/21 12/09/21 release celecoxib 200 mg capsule (Celebrex) 200 mg PO BID #30 caps 11/11/21 12/09/21 docusate sodium 100 mg capsule 100 mg PO BID #30 caps 11/11/21 12/09/21 (Colace) oxycodone 5 mg tablet 5 mg PO Q6H PRN severe 11/11/21 12/09/21 post-operative pain #12 tabs pantoprazole 40 mg tablet,delayed 40 mg PO DAILY #14 tabs 11/11/21 12/09/21 release Previous Rx's Medication Instructions Recorded acetaminophen 500 mg tablet 1,000 mg PO Q8H PRN pain #90 tabs 11/11/21 aspirin 81 mg tablet,delayed 81 mg PO BID 30 days #60 tabs 11/11/21 release celecoxib 200 mg capsule (Celebrex) 200 mg PO BID #30 caps 11/11/21 docusate sodium 100 mg capsule 100 mg PO BID #30 caps 11/11/21 (Colace) oxycodone 5 mg tablet 5 mg PO Q6H PRN severe 11/11/21 post-operative pain #12 tabs pantoprazole 40 mg tablet,delayed 40 mg PO DAILY #14 tabs 11/11/21 release Allergies Allergy/AdvReac Type Severity Reaction Status Date / Time levofloxacin [From Levaquin] Allergy Intermediate rash Verified 12/09/21 14:48 meclizine Allergy Intermediate headache,vision Verified 12/09/21 14:48 changes Sulfa (Sulfonamide Allergy Mild rash Verified 12/09/21 14:48 Antibiotics) atorvastatin Allergy vision/hearing Verified 12/09/21 14:48 changes cyclobenzaprine Allergy esophageal Verified 12/09/21 14:48 [From Flexeril] spasm, urinary incontinence egg Allergy Other (See Verified 12/09/21 14:48 Comment) furosemide Allergy Verified 12/09/21 14:48 gabapentin Allergy eye Verified 12/09/21 14:48 spasms, hearing interfernce General Stated Complaint: Orthopedic DRU: 3 Review of Systems All systems reviewed & are unremarkable except as noted in HPI and below Constitutional Constitutional: Denies fever(s) Musculoskeletal Musculoskeletal: Reports as per HPI PFSH All Active Problems History of total left hip replacement (Acute 11/11/21) Trochanteric bursitis, right hip (Acute) Vertigo (Acute) Vestibular migraine (Acute) Hearing loss, right (Acute) Chronic ischemic heart disease (Acute) Pulmonary nodules (Acute) Osteoarthritis of left hip (Acute) Medical History Actinic keratosis Adrenal gland disorder Arthropathy Cerebrovascular disease pt. denies this Claustrophobia Conduction disorder of the heart LBBB COPD (chronic obstructive pulmonary disease) pt. denies this Coronary artery disease COVID-19 10/09/21 tx with paxlovid Degenerative joint disease of left hip Degenerative joint disease of right hip Depression Disorder of kidney and ureter pt. denies this Dysthymia Edema of both lower extremities GERD (gastroesophageal reflux disease) Hyperlipidemia Hypertension Iliotibial band friction syndrome of both knees pt. denies Knee pain Left bundle branch block Localized edema Lumbar radiculopathy Nicotine dependence Obesity Sensorineural hearing loss, bilateral (03/28/17) Shadow of lung pulmonary nodules Spinal stenosis, lumbar pt. 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) Hx of colonoscopy Lesion of lip lower lip precancerous lesion removal Status post carpal tunnel release Right Family History Sister Diabetes Uterine cancer Father Heart disease Mother Heart disease Brother Diabetes Heart disease Parkinsons disease Social History Smoking/Tobacco Use Status: Former Tobacco Use tobacco type: cigarettes Quit Date: 05/23/11 Tobacco: How many years used: 30 Smoking risk assessment performed?: Yes Alcohol Intake: current Alcohol Intake frequency: holidays/special occasions only Alcohol type: hard liquor Drug use: Never Substance use type: does not use Household members: family and other Housing: other Number of Children: 6 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[employer] Pets and animals: Yes Pets and animals: dog(s) and fish Current gender identity: female What is your relationship status?: Panel score (0-1 are the most socially isolated patients): 0 What type of physical activity do you participate in: none Seatbelt use: always Do you feel safe at home: Yes Do you feel safe in your relationship?: Yes Additional Social history: lives alone Exam Const General: cooperative and no acute distress HENMT Mouth: moist mucous membranes Eyes Conjunctivae: normal conjunctivae Sclera: normal sclerae Resp Auscultation: clear to auscultation bilaterally, no rales, no rhonchi and no wheezes Cardio Rate: regular rate and not tachycardic Rhythm: regular rhythm GI Palpation: soft, not firm, no guarding, no masses, not rigid and nontender Skin General skin exam: no rashes or lesions noted Neuro General: patient alert, patient awake, patient oriented x3 and tone normal Extrem General: no edema Left lower extremity: hip/thigh (Pain with flexion, extension and external rotation) Details: other (Exam limited, Dr. Moore here to evaluate patient); no unusual warmth Psych Appearance: grossly normal Mental Status: mental status grossly normal Course Vital Signs Vital signs: Vital Signs Temperature 36.7 C 12/09/21 14:44 Pulse 67 12/09/21 14:44 Respiratory Rate 16 12/09/21 14:44 Blood Pressure 141/58 H 12/09/21 14:44 Pulse Oximetry 94 12/09/21 14:44 Temperature 36.7 C 12/09/21 14:44 Temperature Source Temporal Artery Scan 12/09/21 14:44 Pulse 67 12/09/21 14:44 Respiratory Rate 16 12/09/21 14:44 Respiratory Effort 12/09/21 14:48 Blood Pressure 141/58 H 12/09/21 14:44 Blood Pressure Position Sitting 12/09/21 14:44 Pulse Oximetry 94 12/09/21 14:44 Oxygen Delivery Method Room Air 12/09/21 14:44 Oxygen Flow Rate 0 12/09/21 14:44 Pain Level 0 12/09/21 14:44 Comment 12/09/21 14:44 Lab/Test Results Lab/Test Results: Laboratory Tests Range/Units 12/09/21 12/09/21 12/09/21 15:16 15:16 15:16 WBC (4.4-10.8) 10^3/uL 15.59 H RBC (3.93-5.22) 10^6/uL 4.75 Hgb (11.2-15.7) g/dL 13.9 Hct (36.0-46.0) % 41.2 MCV (80-95) fL 87 MCH (27.0-33.0) pg 29.3 MCHC (32.0-36.0) % 33.7 RDW (11.7-14.6) % 14.2 Plt Count (130-400) 10^3/uL 314 MPV (8.0-11.0) fL 9.4 Immature Gran % 0.3 Neutrophils % 78.7 Lymphocytes % 11.0 Monocytes % 7.6 Eosinophils % 2.1 Basophils % 0.3 Nucleated RBC % (0.0-0.3) % 0.0 Absolute Neutrophils (1.2-6.7) 10^3/uL 12.27 H Absolute Lymphocytes (1.2-3.4) 10^3/uL 1.71 Absolute Monocytes (0.1-0.8) 10^3/uL 1.18 H Absolute Eosinophils (0.0-0.7) 10^3/uL 0.33 Absolute Basophils (0.0-0.2) 10^3/uL 0.05 ESR (0-30) mm/hr 39 H Magnesium (1.8-2.4) mg/dL 2.1 C-Reactive Protein (0.0-0.3) mg/dL 0.42 H
[2021-12-09 15:44] LABS: ALT 24 U/L (14-59); AST 20 U/L (15-37); Albumin 3.9 g/dL (3.4-5.0); Alkaline Phosphatase 115 U/L (46-116); Anion Gap 7.9 mmol/L (3-11); BUN 14 mg/dL (7-18); Bilirubin, Total 0.6 mg/dL (0.2-1.0); CO2 26.1 mmol/L (21.0-32.0); Calcium 9.4 mg/dL (8.5-10.1); Chloride 102 mmol/L (98-107); Estimated GFR 53.08 (mL/min/1.73m2); Glucose 118 mg/dL (74-106); Potassium 4.2 mmol/L (3.5-5.1); Sodium 136 mmol/L (136-145); Total Protein 8.1 g/dL (6.4-8.2); Troponin I < 50 ng/L (<or=60)
[2021-12-09 16:06] LABS: D-Dimer 5145 ng/mlFEU (<500)
--- NOTE | 2021-12-09 16:08 | DI.RAD_ITS ---
Exam(s) RF JOINT INJECTION FLUORO GUID EXAM: RF JOINT INJECTION FLUORO GUID CLINICAL HISTORY: Left Hip Pain s/p LISHA. TECHNIQUE: 2D and realtime digital imaging was performed. COMPARISON: No exams were available for comparison FINDINGS: Falsely was provided for Dr. Moore for guidance with performing a left hip injection. Please see procedure note for details. Fluoro time 1 second RADIATION DOSE DELIVERED: Ka,r=7.70 mGy
--- NOTE | 2021-12-09 16:15 | DI.CT_ITS ---
Exam(s) CT CHEST PE CTA EXAM: CT CHEST PE CTA CLINICAL HISTORY: postive dimer, leg swelling. TECHNIQUE: Imaging Protocol: Axial CT angiography was performed with multi-slice acquisition and mu lti-planar reconstructions as well as axial, coronal and sagittal MIP reconstructions. CONTRAST MATERIAL: Intravenous: Omnipaque 350 Contrast volume:100 ml COMPARISON: CT CT CHEST WO CONTRAST from 02/12/2021 CT,NM,TMT NM MPI REST STRESS GRP from 08/10/2021 FINDINGS: Pulmonary Arteries: No evidence of filling defect to suggest pulmonary emboli. Tracheobronchial tree: Patent where visualized. Mediastinum and Diana: No dominant adenopathy or fluid collection. Pulmonary parenchyma: No consolidation or dominant measurable mass. Scattered tiny bilateral pulmonar y nodules, stable from prior exam. Pleura: No effusion or pneumothorax. Heart: The heart is mildly dilated. Moderate coronary artery calcifications are seen. Aorta: Thoracic aorta non-dilated. No aneurysm. No dissection. Atherosclerotic changes. Upper abdomen: A few small calcified gallstones are noted in the dependent portion of the gallbladder . Bones: Unremarkable for age. Tubes, Catheters, and Lines: IMPRESSION: No evidence of pulmonary embolism or other acute abnormality.. Results of this exam have been verbally communicated with the emergency department provider. RADIATION DOSE DELIVERED: 407.64mGy.cm Total DLP DATA REPOSITORY: All CT scans at this facility are submitted to the National Radiology Data Registry (NRDR) Dose Index Registry (DIR) with the [employer] ([employer]). RADIATION OPTIMIZATION: All CT scans at this facility use at least one of these dose optimization te chniques: automated exposure control; mA and/or kV adjustment per patient size (includes targeted exa ms where dose is matched to clinical indication); or iterative reconstruction.
--- NOTE | 2021-12-09 16:19 | DI.RAD_ITS ---
Exam(s) XR HIP LT AP LAT ONLY EXAM: XR HIP LT AP LAT ONLY CLINICAL HISTORY: hip pain s/p LISHA. TECHNIQUE: 2D digital imaging was performed. Two views. COMPARISON: CR XR HIP MIN 2V LT from 03/27/2021 CR XR HIP RT AP LAT ONLY from 04/13/2021 CR XR PELVIS AP from 06/25/2021 CR XR HIP LT COMPLETE AP PELVIS from 11/26/2021 FINDINGS: BONES: There has been no change in the alignment of the left hip prosthesis. No surrounding lucencie s. No acute fracture is present. No bony destructive lesion is seen. JOINTS: No dislocation present. SOFT TISSUE: Normal. IMPRESSION: Stable appearance of left hip prosthesis. DATA REPOSITORY: RADIATION DOSE DELIVERED:
[2021-12-09] MEDS: Bupivacaine 0.5% Pres-Free 30 ML VIAL 8 ML IJ (16:28)
[2021-12-09 16:33] LABS: Clarity Bloody; Nucleated Cells 909 uL (0)
--- NOTE | 2021-12-09 16:45 | RT.EKG_ITS ---
APPROVED REPORT Exam: Resting ECG Reason for Exam: shortness of breath Patient Location: E HR:68 bpm ECG Measurements Heart Rate 68 AXIS NV 188 P 55 QRSd 152 QRS -36 QT 445 T 123 QTc 451 Conclusion Sinus rhythm...normal P axis, V-rate 60- 99 Atrial premature complexes...SV complexes w/ short R-R intvls Left bundle branch block...QRSd>120, broad/notched R ST elevation secondary to IVCD...Multiple VCG criteria sinus rhtyhm, left axis, LBBB
[2021-12-09] MEDS: Omnipaque 350 MG/ML 100 ML BTL IJ (16:48)
[2021-12-09 17:06] LABS: Mononuclear Cells 25 %; Polynuclear Cells 75 %
[2021-12-09 17:11] VITALS: BP 157/63; PULSE 57; RESP 16; O2SAT 96
--- NOTE | 2021-12-09 18:10 | W.EDPROG ---
Date of service: 12/09/21 Time of Service: 18:10 Medical Decision Making Aspiration results from left hip showing WBC count less than 1,000, 75% polymorphonucleocytes, negative for bacteria. Likely inflammatory process less likely infectious process. Spoke with Dr. Moore of orthopedic surgery who would like patient started on a prednisone taper. We will follow-up with orthopedic team as an outpatient this week, will have patient return tomorrow for official lower extremity ultrasound. Negative DVT study at the bedside. Sign Out Sign Out Data: Sign Out Comment: Care signed out to Dr. Tang with plan to follow-up on EKG, CT chest and discuss orthopedic treatment with Dr. Moore. Last updated by Mihir Wallace MD at 12/09/21 16:51 Discharge Plan Disposition Patient Disposition: HOME Condition: Stable Discharge Details Clinical Impression: Hip pain Primary Care Provider: Rad Kwok ED Provider: Jorge Tang Home Meds and New Rx's Prescriptions: New prednisone 20 mg tablet 20 mg PO DAILY Qty: 6 0RF Rx Instructions: take two tabs on day one, take two tabs on day two, take one tab on day three, and take one tab on day four No Action garlic 1,000 mg capsule 1,000 mg PO DAILY cholecalciferol (vitamin D3) 25 mcg (1,000 unit) capsule 25 mcg PO DAILY losartan 25 mg tablet 25 mg PO BID metoprolol succinate 25 mg capsule,sprinkle,ER 24hr 25 mg PO DAILY ezetimibe 10 mg tablet 10 mg PO DAILY nitroglycerin 0.4 mg tablet, sublingual 0.4 mg sublingual Q5M PRN Rx Instructions: do not exceed 3 doses per episode celecoxib [Celebrex] 200 mg capsule 200 mg PO BID Qty: 30 0RF aspirin 81 mg tablet,delayed release (DR/EC) 81 mg PO BID 30 Days Qty: 60 0RF acetaminophen 500 mg tablet 1,000 mg PO Q8H PRN Qty: 90 0RF Rx Instructions: Take two tablets up to every 8 hours as needed for pain pantoprazole 40 mg tablet,delayed release (DR/EC) 40 mg PO DAILY Qty: 14 0RF docusate sodium [Colace] 100 mg capsule 100 mg PO BID Qty: 30 0RF oxycodone 5 mg tablet 5 mg PO Q6H PRN (Reason: severe post-operative pain) Qty: 12 0RF Rx Instructions: Take one tablet up to every 6 hours as needed for severe pain Discharge Instructions Instructions: Leg Pain (ED) Additional Instructions: Please follow-up with ultrasound tomorrow for repeat ultrasound of your leg. Please be seen by orthopedic surgery as scheduled in the next week. Please return to the emergency department you have any worsening symptoms
[2021-12-09] MEDS: predniSONE 20 MG TAB 40 MG PO (18:13)
--- NOTE | 2021-12-09 20:32 | OPPNE_ITS ---
Date of service: 12/09/21 Time of Service: 16:05 Procedure Note Date of procedure: 12/09/21 Procedure: Left Hip Injection with Fluoroscopic Guidance Surgeon/Proceduralist/Physician: Petros Moore Procedure Diagnosis: Painful left hip replacement Procedure Indications: Brynn has had worsening pain of the LEFT hip and groin following hip replacement 4 weeks ago. Given the possible concern for infection I recommended aspiration of the left hip under fluoroscopic guidance. I had discussed the risks of the procedure and the patient elected to proceed. Procedure Description: Brynn was greeted in the flouroscopy room. The correct side was identified and the consent was reviewed with the patient and signed. The patient was then placed in the supine position on the fluoroscopy table. The LEFT hip was then prepped with Chloraprep. The anterolateral injection starting point was identiifed by bony landmarks and fluoroscopy. The skin and soft tissue in the tract of the injection was anesthetized with 1% Lidocaine. A spinal needle was then inserted deep into the hip joint at the level of the head neck junction. The needle tip was able to encounter metal and was confirmed to be in a prone position on the x-ray. I did have to reposition the needle just very slightly in order to withdraw some fluid. I was able to aspirate about 7 cc of blood- tinged synovial fluid. No purulence. No particulate. This fluid was sent to the lab for cell count and culture. I also injected the hip with 10 cc of 0.5% bupivacaine. Examination after the anesthetic injection showed no change in her symptoms. A bandaid was placed on the injection site. The patient tolerated the procedure well.
--- NOTE | 2021-12-10 07:25 | OCONE_ITS ---
Date of service: 12/09/21 Time of Service: 15:30 History of Present Illness History of Present Illness Chief Complaint: Left hip pain, shortness of breath Narrative: Brynn is an 81-year-old who is almost 4 weeks status post left hip replacement. Unfortunately, she has been having worsening left hip pain over the past 2 weeks. She feels that she is unable to lift the left leg. She has been very active but has been more restful the past few days but has not had any improvement. Additionally, she has been complaining of some shortness of breath and some intermittent chest type pain or a weird sensation in her chest. She feels her activity level is decreasing. She denies fevers or chills but otherwise does feel tired and fatigued. I recommend that she come to the emergency department for evaluation and I was consulted by the emergency team here and Dr. Wallace. She denies any issues with the wound. She does have pain over the anterior thigh and the medial aspect of the left thigh. Pain is worse with any attempted flexion of the left hip. She still is able to ambulate and stand without an assistive device although there is some mild discomfort with this. No radicular symptoms. No numbness or tingling. Consults Consult date: 12/09/21 Requesting physician: Mihir Wallace Consult Reason Left hip pain status post total hip Assessment and Plan Assessment and plan (1) Pain in hip region after hip replacement: Status: Acute Assessment and plan: Brynn is an 81-year-old who has had worsening pain about her left hip status post hip replacement. She has shortness of breath as well and therefore I recommended proceeding to the emergency department. She did have an elevated D- dimer and CT of the chest was performed which was negative for pulmonary embolus. Bedside screening ultrasound was also negative for blood clot but formal ultrasounds not been performed. She did have a very mildly elevated CRP and sed rate which is not terribly concerning for infection but definitely raises this possibility. Typically at 4 weeks status post surgery I would expect the inflammatory markers to already be may be mildly elevated from the surgery and even more so if there is infection. Nevertheless, I was able to proceed to fluoroscopy with Brynn where an aspiration of the left it was performed, removing about 7 cc of bloody synovial fluid. This was sent to the lab with 900 cells and 75% PMNs. This number is well below the threshold of infection. While does not exclude that it is greater than 99% unlikely. Given his negative work-up I am encouraged that this is likely a soft tissue problem. It is very possible that she has an injury and swelling to the rectus femoris or the iliopsoas and with her increasing activity and older age she is just having some pain and swelling in this muscle belly. She has not been doing any heat and stretching or massage. Therefore I encouraged her to start doing this to the rectus in the anterior thigh. Additionally we will start a prednisone burst to see if this can help calm down where her pain she is having. We will continue to follow this closely and work-up as needed. Review of Systems All systems reviewed & are unremarkable except as noted in HPI and below PFSH All Active Problems (Updated 12/10/21 @ 07:30 by Petros Moore MD) Pain in hip region after hip replacement (Acute) Hip pain (Acute) History of total left hip replacement (Acute 11/11/21) Trochanteric bursitis, right hip (Acute) Vertigo (Acute) Vestibular migraine (Acute) Hearing loss, right (Acute) Chronic ischemic heart disease (Acute) Pulmonary nodules (Acute) Osteoarthritis of left hip (Acute) Medical History Actinic keratosis Adrenal gland disorder Arthropathy Cerebrovascular disease pt. denies this Claustrophobia Conduction disorder of the heart LBBB COPD (chronic obstructive pulmonary disease) pt. denies this Coronary artery disease COVID-19 10/09/21 tx with paxlovid Degenerative joint disease of left hip Degenerative joint disease of right hip Depression Disorder of kidney and ureter pt. denies this Dysthymia Edema of both lower extremities GERD (gastroesophageal reflux disease) Hyperlipidemia Hypertension Iliotibial band friction syndrome of both knees pt. denies Knee pain Left bundle branch block Localized edema Lumbar radiculopathy Nicotine dependence Obesity Sensorineural hearing loss, bilateral (03/28/17) Shadow of lung pulmonary nodules Spinal stenosis, lumbar pt. 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) Hx of colonoscopy Lesion of lip lower lip precancerous lesion removal Status post carpal tunnel release Right Family History Sister Diabetes Uterine cancer Father Heart disease Mother Heart disease Brother Diabetes Heart disease Parkinsons disease Social History Smoking/Tobacco Use Status: Former Tobacco Use tobacco type: cigarettes Quit Date: 05/23/11 Tobacco: How many years used: 30 Smoking risk assessment performed?: Yes Alcohol Intake: current Alcohol Intake frequency: holidays/special occasions only Alcohol type: hard liquor Drug use: Never Substance use type: does not use Household members: family and other Housing: other Number of Children: 6 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 Pets and animals: Yes Pets and animals: dog(s) and fish Current gender identity: female What is your relationship status?: Panel score (0-1 are the most socially isolated patients): 0 What type of physical activity do you participate in: none Seatbelt use: always Do you feel safe at home: Yes Do you feel safe in your relationship?: Yes Additional Social history: lives alone Exam Narrative Exam Narrative: Brynn walks into the emergency department with mild limp towards the left side mostly antalgic in nature. Evaluation of the left hip in the supine position shows a well-healed incision. No erythema. No significant warmth. There is some fullness and swelling about the left thigh starting at the level of the fold and going down the anterior aspect the left thigh. No significant pain to palpation over the incision site or over the ATFL or the trochanteric bursa. Habitus does limit some of the examination. In a supine position she has no pain with internal nor external rotation of the left hip. As I bring up in the flexion she starts having pain at about 70 degrees and is resistant to allow me to continue to flex the hip. However at this position of flexion she is able to tolerate internal and external rotation without any signs of subluxation or pain or crepitus. Actually loading the hip does not seem to cause pain. Once again, she is unable to flex left hip without significant pain and is unable to demonstrate this. However, if I support the thigh she is able to extend the left knee but starts to have pain in the left thigh itself. She is pain to palpation along the rectus femoris as well as over the medial aspect of the left hip in the region of the iliopsoas and the abductor tendons. Results Last Vital Signs Temp 36.7 C 12/09/21 14:44 Pulse 57 L 12/09/21 17:11 Resp 16 12/09/21 17:11 BP 157/63 H 12/09/21 17:11 Pulse Ox 96 12/09/21 17:11 Labs Result diagrams: 12/09/21 15:16 12/09/21 15:16 Labs: Laboratory Results - last 24 hr 12/09/21 12/09/21 12/09/21 15:16 15:16 15:16 WBC RBC Hgb Hct MCV MCH MCHC RDW Plt Count MPV Immature Gran % Neutrophils % Lymphocytes % Monocytes % Eosinophils % Basophils % Nucleated RBC % Absolute Neutrophils Absolute Lymphocytes Absolute Monocytes Absolute Eosinophils Absolute Basophils ESR 39 H D-Dimer 5145 H Sodium Potassium Chloride Carbon Dioxide Anion Gap BUN Creatinine Estimated GFR/1.73 m2 Glucose Calcium Magnesium 2.1 Total Bilirubin AST ALT Alkaline Phosphatase Troponin I C-Reactive Protein 0.42 H Total Protein Albumin Fluid Source Fluid Color Fluid Clarity Fluid WBC Fld Polynuclear WBCs % Fluid Mononuclear Cell 12/09/21 12/09/21 12/09/21 15:16 15:16 16:15 WBC 15.59 H RBC 4.75 Hgb 13.9 Hct 41.2 MCV 87 MCH 29.3 MCHC 33.7 RDW 14.2 Plt Count 314 MPV 9.4 Immature Gran % 0.3 Neutrophils % 78.7 Lymphocytes % 11.0 Monocytes % 7.6 Eosinophils % 2.1 Basophils % 0.3 Nucleated RBC % 0.0 Absolute Neutrophils 12.27 H Absolute Lymphocytes 1.71 Absolute Monocytes 1.18 H Absolute Eosinophils 0.33 Absolute Basophils 0.05 ESR D-Dimer Sodium 136 Potassium 4.2 Chloride 102 Carbon Dioxide 26.1 Anion Gap 7.9 BUN 14 Creatinine 1.0 Estimated GFR/1.73 m2 53.08 Glucose 118 H Calcium 9.4 Magnesium Total Bilirubin 0.6 AST 20 ALT 24 Alkaline Phosphatase 115 Troponin I < 50 C-Reactive Protein Total Protein 8.1 Albumin 3.9 Fluid Source L Hip Fluid Color Red Fluid Clarity Bloody Fluid WBC 909 Fld Polynuclear WBCs % 75 Fluid Mononuclear Cell 25 Imaging Imaging Studies: X-ray of the left hip appears to be without issue. No signs of lucency. No fracture.
== END 2021-12-09 18:31 | disposition home or self-care (01) ==
PROVIDERS: Student in an Organized Health Care Education/Training Program; Emergency Provider Emergency Medicine; PCP Family Medicine
DX: I10 Essential (primary) hypertension (principal); J44.9 Chronic obstructive pulmonary disease, unspecified; Z96.642 Presence of left artificial hip joint; Z87.891 Personal history of nicotine dependence; M25.552 Pain in left hip; G89.18 Other acute postprocedural pain
CPT/HCPCS: 20610; 36415; 71275; 77002; 80053; 85652; 93005; 99283; 99285; 73502; 83735; 84484; 85025; 85379; 86140; 87070; 87205; 89051; 93010; 99284; J3490; J7512

== ENCOUNTER → 2021-12-10 13:59 | Outpatient (CLI) | payer MEDICARE, SELFPAY ==
--- NOTE | 2021-12-10 | DI.US_ITS ---
Exam(s) US LOWER EXTREMITY VENOUS LT EXAM: US LOWER EXTREMITY VENOUS LT CLINICAL HISTORY: RECENT HIP SURGERY,LEG PAIN, ? DVT TECHNIQUE: Grayscale, color, and doppler imaging of the deep venous system of the left lower extremi ty was performed. COMPARISON: No exams were available for comparison FINDINGS: There is no evidence of intraluminal thrombus and there is normal compression and augmentation demons trated within the common femoral vein, femoral vein, and popliteal vein. In the ipsilateral calf the interrogated veins also exhibit normal compression/ augmentation properti es. The ipsilateral saphenofemoral junction is patent. IMPRESSION: 1. No evidence of DVT in the left lower extremity. DATA REPOSITORY:
== END ==
PROVIDERS: PCP Family Medicine; Visit Provider Emergency Medicine
DX: M79.605 Pain in left leg (principal); Z98.890 Other specified postprocedural states
CPT/HCPCS: 93971

== ENCOUNTER 2022-01-04 15:37 | Outpatient (CLI) | payer MEDICARE, SELFPAY ==
--- NOTE | 2022-01-04 14:15 | DI.RAD_ITS ---
Exam(s) XR HIP LT AP LAT ONLY EXAM: XR HIP LT AP LAT ONLY CLINICAL HISTORY: HISTORY OF LEFT TOTAL HIP REPLACEMENT. TECHNIQUE: 2D digital imaging was performed. COMPARISON: CR XR HIP LT AP LAT ONLY from 12/09/2021 FINDINGS: Two views Satisfactory position alignment of components of prosthesis. No fracture or loosening no radiographi c change from 12/09/2021. IMPRESSION: DATA REPOSITORY: RADIATION DOSE DELIVERED:
--- NOTE | 2022-01-04 14:30 | DI.RAD_ITS ---
Exam(s) XR FEMUR LT EXAM: XR FEMUR LT CLINICAL HISTORY: continued left thigh/hip pain s/p LISHA. TECHNIQUE: 2D digital imaging was performed. COMPARISON: CR XR HIP LT AP LAT ONLY from 01/04/2022 FINDINGS: Two views Left hip prosthesis. Satisfactory position and alignment. Lower down at level the lateral femoral condyle there is is subtle cortical irregularity on the later al aspect, possibly significant but there is no evidence of joint effusion therefore is unlikely that this would represent fracture. Chondrocalcinosis moderate narrowing of the medial compartment and l ateral compartment noted. IMPRESSION: Subtle cortical irregularity on the outer aspect the lateral femoral condyle. Correlation with site of tenderness recommended. No obvious joint effusion in the knee. DATA REPOSITORY: RADIATION DOSE DELIVERED:
== END 2022-01-04 15:38 | disposition home or self-care (01) ==
LOC: DIORS 15:37
PROVIDERS: PCP Family Medicine; Referring Provider Family Medicine; Visit Provider Student in an Organized Health Care Education/Training Program
DX: Z96.642 Presence of left artificial hip joint; Z47.1 Aftercare following joint replacement surgery
CPT/HCPCS: 73552; 73502

== ENCOUNTER 2022-02-15 13:47 | Outpatient (CLI) | payer MEDICARE, SELFPAY ==
--- NOTE | 2022-02-15 13:15 | DI.RAD_ITS ---
Exam(s) XR HIP LT AP LAT ONLY EXAM: XR HIP LT AP LAT ONLY INDICATION: eval continued left hip pain after LISHA. COMPARISON: CR XR HIP LT AP LAT ONLY from 01/04/2022 TECHNIQUE: 2D digital imaging was performed. Two views. FINDINGS: There has been no change in the alignment of the left hip prosthesis or appearance of surrounding bon e. DATA REPOSITORY: RADIATION DOSE DELIVERED:
== END 2022-02-15 13:48 | disposition home or self-care (01) ==
LOC: DIORS 13:49
PROVIDERS: PCP Family Medicine; Referring Provider Family Medicine; Visit Provider Student in an Organized Health Care Education/Training Program
DX: M25.552 Pain in left hip (principal); Z96.642 Presence of left artificial hip joint; Z47.1 Aftercare following joint replacement surgery
CPT/HCPCS: 73502

== ENCOUNTER → 2022-03-12 01:01 | Outpatient (CLI) | payer MEDICARE, SELFPAY ==
--- NOTE | 2022-03-12 09:57 | DI.CT_ITS ---
Exam(s) CT LOWER EXTREMITY LT WO EXAM: CT LOWER EXTREMITY LT WO CLINICAL HISTORY: lt hip pain, h/o total hip replacement, m25.559,m25.552,z96.642,. TECHNIQUE: Imaging Protocol: Axial computed tomography images with coronal and sagittal reformatted images were created and reviewed. CONTRAST MATERIAL: Intravenous: None COMPARISON: CR XR HIP LT AP LAT ONLY from 02/15/2022 FINDINGS: There is no evidence of left brianne pelvic fracture. The components of the left hip prosthesis appear satisfactorily seated. No obvious loosening. No ev idence to suggest osteomyelitis. There is no obvious fluid collection in the region of or surroundin g the prosthesis. There is some scarring in the subcutaneous fat related to the surgery but no drain able fluid collection evident. No evidence of obvious bursitis. IMPRESSION: No significant findings related to the left hip prosthesis and surrounding tissues. RADIATION DOSE DELIVERED: 258.76mGy.cm Total DLP DATA REPOSITORY: All CT scans at this facility are submitted to the National Radiology Data Registry (NRDR) Dose Index Registry (DIR) with the [employer] (A[employer]). RADIATION OPTIMIZATION: All CT scans at this facility use at least one of these dose optimization te chniques: automated exposure control; mA and/or kV adjustment per patient size (includes targeted exa ms where dose is matched to clinical indication); or iterative reconstruction.
== END ==
PROVIDERS: PCP Family Medicine; Visit Provider Student in an Organized Health Care Education/Training Program
DX: Z96.642 Presence of left artificial hip joint; T84.84XA Pain due to internal orthopedic prosthetic devices, implants and grafts, initial encounter
CPT/HCPCS: 73700

== ENCOUNTER → 2022-04-12 13:19 | Outpatient (BNVA) | payer MEDICARE, SELFPAY | PROVIDERS: PCP Family Medicine; Referring Provider Family Medicine; Visit Provider Student in an Organized Health Care Education/Training Program | DX: M25.552 Pain in left hip (principal); Z96.642 Presence of left artificial hip joint | CPT/HCPCS: 99213 ==

== ENCOUNTER → 2022-06-07 13:02 | Outpatient (BNVA) | payer MEDICARE, SELFPAY | PROVIDERS: PCP Family Medicine; Referring Provider Family Medicine; Visit Provider Student in an Organized Health Care Education/Training Program | DX: M25.552 Pain in left hip (principal); Z96.642 Presence of left artificial hip joint | CPT/HCPCS: 99213 ==

== ENCOUNTER 2022-06-29 02:45 | Outpatient (CLI) | payer MEDICARE, SELFPAY ==
--- NOTE | 2022-06-29 07:00 | DI.MRI_ITS ---
Exam(s) MR LOWER JOINT LT WO EXAM: MR LOWER JOINT LT WO CLINICAL HISTORY: PAIN IN HIP AFTER REPLACEMENT,M25.559,Z96.649,Z96.642 TECHNIQUE: Multiplanar multisequence MRI of the knee was performed. COMPARISON: CR XR HIP LT AP LAT ONLY from 02/15/[address] LOWER EXTREMITY LT WO from 03/12/2022 FINDINGS: There are bilateral hip prostheses. This MRI study is focus on the left hip prosthesis. The prosthesis appears well seated. There is no prominent surrounding marrow edema which would sugge st obvious loosening.. There is very mild bone edema evident in superior aspect of the ipsilateral g reater trochanter. Addition, there is increased signal in the soft tissues immediately lateral to th e greater trochanter involving the gluteus medius tendon. This is asymmetric when compared to the op posite-right side where there is no similar finding. There is no defined fluid collection at this le roxana nor elsewhere around the left hip. There is no abnormal intramuscular signal to suggest myositis . No asymmetric atrophy. No incidental adenopathy. Ipsilateral hamstrings attachment site at the i schial tuberosity appears unremarkable. No abnormal signal within the pubic rami and acetabulum. IMPRESSION: 1. There is no evidence of loosening of the left hip prosthesis. 2. The main finding in the region of the left hip is increased signal in the soft tissues immediately adjacent to the outer aspect of the greater trochanter-gluteus medius tendon region, consistent with probable tendinitis-mild bursitis. There is some very mild bone edema evident in the superior aspec t of the ipsilateral greater trochanter immediately adjacent to the soft tissue findings. DATA REPOSITORY:
== END 2022-06-29 03:05 ==
LOC: DI 02:45
PROVIDERS: PCP Family Medicine; Visit Provider Student in an Organized Health Care Education/Training Program
DX: M25.552 Pain in left hip (principal); Z96.642 Presence of left artificial hip joint; M79.89 Other specified soft tissue disorders; R60.0 Localized edema
CPT/HCPCS: 73721

== ENCOUNTER → 2022-07-08 10:01 | Outpatient (BNVA) | payer MEDICARE, SELFPAY | PROVIDERS: PCP Family Medicine; Referring Provider Family Medicine; Visit Provider Student in an Organized Health Care Education/Training Program | DX: Z96.642 Presence of left artificial hip joint (principal); M70.62 Trochanteric bursitis, left hip | CPT/HCPCS: 99212 ==

== ENCOUNTER 2022-11-15 13:52 | Outpatient (CLI) | payer MEDICARE, SELFPAY ==
--- NOTE | 2022-11-15 13:43 | DI.RAD_ITS ---
Exam(s) XR HIP LT AP LAT ONLY EXAM: XR HIP LT AP LAT ONLY CLINICAL HISTORY: ANNUAL F/U L LISHA. TECHNIQUE: 2D digital imaging was performed. Two images were obtained. AP and lateral views were ob tained. COMPARISON: CR XR HIP LT AP LAT ONLY from 02/15/2022 FINDINGS: BONES: There are stable post operative changes present. No fracture or dislocation. JOINTS: The orthopedic hardware is in good position. No evidence of hardware loosening. SOFT TISSUE: Normal. IMPRESSION: Stable postoperative changes. DATA REPOSITORY: RADIATION DOSE DELIVERED:
== END 2022-11-15 13:53 | disposition home or self-care (01) ==
LOC: DIORS 13:52
PROVIDERS: PCP Family Medicine; Referring Provider Family Medicine; Visit Provider Student in an Organized Health Care Education/Training Program
DX: Z96.642 Presence of left artificial hip joint (principal); M70.62 Trochanteric bursitis, left hip
CPT/HCPCS: 99213; 73502

== ENCOUNTER → 2023-01-14 08:40 | Outpatient (BNVA) | payer MEDICARE, SELFPAY | PROVIDERS: PCP Family Medicine; Referring Provider Family Medicine; Visit Provider Student in an Organized Health Care Education/Training Program | DX: M70.62 Trochanteric bursitis, left hip (principal); Z96.642 Presence of left artificial hip joint | CPT/HCPCS: 99213 ==

== ENCOUNTER → 2023-06-24 10:21 | Outpatient (BNVA) | payer MEDICARE, SELFPAY | PROVIDERS: PCP Family Medicine; Referring Provider Family Medicine; Visit Provider Student in an Organized Health Care Education/Training Program | DX: M70.62 Trochanteric bursitis, left hip (principal); Z96.642 Presence of left artificial hip joint | CPT/HCPCS: 20610; J1040 ==

== ENCOUNTER → 2023-09-06 11:26 | Outpatient (BNVA) | payer MEDICARE, SELFPAY | PROVIDERS: PCP Family Medicine; Referring Provider Family Medicine; Visit Provider Podiatrist | DX: B35.1 Tinea unguium (principal); L60.3 Nail dystrophy | CPT/HCPCS: 99213 ==

== ENCOUNTER 2023-10-24 11:16 | Outpatient (CLI) | payer MEDICARE, SELFPAY ==
--- NOTE | 2023-10-24 09:34 | DI.RAD_ITS ---
Exam(s) XR HIP LT AP LAT ONLY EXAM: XR HIP LT AP LAT ONLY CLINICAL HISTORY: ANNUAL F/U L LISHA. TECHNIQUE: 2D digital imaging was performed. Two images were obtained. AP and lateral views were ob tained. COMPARISON: CR XR HIP LT AP LAT ONLY from 11/15/2022 FINDINGS: BONES: There are stable post operative changes of a left total hip replacement present. No fracture or dislocation. JOINTS: The orthopedic hardware is in good position. No evidence of hardware loosening. SOFT TISSUE: Normal. IMPRESSION: Stable left total hip replacement. DATA REPOSITORY: RADIATION DOSE DELIVERED:
== END 2023-10-24 11:17 | disposition home or self-care (01) ==
LOC: DIORS 11:16
PROVIDERS: PCP Family Medicine; Referring Provider Family Medicine; Visit Provider Student in an Organized Health Care Education/Training Program
DX: Z47.1 Aftercare following joint replacement surgery (principal); Z96.642 Presence of left artificial hip joint
CPT/HCPCS: 99213; 73502

== ENCOUNTER → 2024-01-03 11:00 | Outpatient (BNVA) | payer MEDICARE, SELFPAY | PROVIDERS: PCP Family Medicine; Referring Provider Family Medicine; Visit Provider Podiatrist | DX: B35.1 Tinea unguium (principal); L60.3 Nail dystrophy; M79.674 Pain in right toe(s); M79.675 Pain in left toe(s) | CPT/HCPCS: 11720 ==